=== PATIENT | male | born 1940 | race Caucasian/White ===

== ENCOUNTER → 2017-01-22 | Outpatient (CLI) | payer MEDICARE, OTHER ==
--- NOTE | 2017-01-22 09:46 | US ---
EXAMINATION TYPE: US prostate transrectal DATE OF EXAM: 01/22/2017 COMPARISON: NONE CLINICAL HISTORY: R97.20 elevated PSA. 76 year old with elevated PSA This examination was performed using the transrectal probe. EXAM MEASUREMENTS: Gland Size: 4.0 x 2.1 x 3.8cm Volume: 17.1ml Predicted PSA: 0.26 Actual PSA (if available):4.4 Heterogeneous gland, no evidence of a distinct nodule within peripheral zone at this time IMPRESSION: 1. No suspicious lesions identified however predicted PSA of actual PSA are discordant. Consider tiss ue diagnosis. Predicted PSA = volume x 0.12 ng/ml Calculated Volume = 0.5236 x L x W x H
== END | disposition home or self-care (01) ==
LOC: RADUSMAIN 08:51
PROVIDERS: ATTEND Family Medicine
DX: R97.20 Elevated prostate specific antigen [PSA] (principal)
CPT/HCPCS: 76872

== ENCOUNTER 2017-02-11 06:57 | Day surgery (SDC) | payer MEDICARE, OTHER ==
[2017-02-07 08:40] VITALS: BMI 22.4
[~2017-02-11 06:57] MED LIST: LACTATED RINGERS 1,000 ML IV SCH; LIDOCAINE 1% 20 ML VIAL (10MG/ML) FOR IV START INTRADERMA PRN
[2017-02-11] MEDS ORDERED: LACTATED RINGERS 1,000 ML IV ONE (07:06)
[2017-02-11 07:37] LABS: Glucose,Whole Blood 107 mg/dL (75-99)
[2017-02-11] MEDS ORDERED: LIDOCAINE 1% INJ 10MG/ML (20 ML MDV) ONE (08:21)
[2017-02-11] MEDS ORDERED: PROPOFOL 10 MG/ML 20 ML VIAL IV ONE (08:21)
--- NOTE | 2017-02-11 09:12 | P.PCN ---
Date of Procedure: 02/11/17 Preoperative Diagnosis: Postoperative Diagnosis: Procedure(s) Performed: Procedure: Total colonoscopy. Preoperative diagnosis: Screening for neoplasia, patient has history of polyps. Postoperative diagnosis: Diffuse diverticulosis with no evidence of acute diverticulitis, strictures, polyps or cancer. Preparation: HalfLytely prep. Sedation: Was provided by anesthesia. Brief clinical history: The patient is a 77-year-old male who is scheduled for this evaluation because of history of polyps. He had prior exam for screening and his preparation was less than ideal or poor on some of these exams. Procedure: With the patient on his left lateral decubitus position and after informed consent and adequate sedation, the perianal area was inspected and it did not show any fissures or fistulas. There were no masses felt on digital rectal examination. The Olympus CFQ 160L video colonoscope was then inserted in the rectum in the usual fashion and advanced to the cecum. The preparation was good. The mucosa appeared healthy. There were multiple diverticular orifices seen scattered along the length of the bowel, more so on the left side , with no evidence of acute diverticulitis or strictures. No polyps or tumors were seen. I retroflexed the endoscope in the rectum before the endoscope was withdrawn. The patient tolerated the procedure well. Plan: The patient was reassured. Discussed dietary measures. At his age, I did not schedule further screening or surveillance exams and that can be kept as a contingency based on his overall health in the future. He will follow up with you as planned. Implants: Indications for Procedure: Operative Findings: Description of Procedure:
[2017-02-11 09:15] VITALS: BP 95/59; PULSE 76; RESP 16
== END 2017-02-11 10:06 | disposition home or self-care (01) ==
LOC: ORWHC2ENDO 06:57
DX: Z12.11 Encounter for screening for malignant neoplasm of colon (principal); K21.9 Gastro-esophageal reflux disease without esophagitis; K57.30 Diverticulosis of large intestine without perforation or abscess without bleeding; Z86.010 Personal history of colon polyps; I10 Essential (primary) hypertension; E78.5 Hyperlipidemia, unspecified; E11.9 Type 2 diabetes mellitus without complications; Z79.84 Long term (current) use of oral hypoglycemic drugs; Z72.0 Tobacco use; Z79.82 Long term (current) use of aspirin; Z79.891 Long term (current) use of opiate analgesic; Z79.899 Other long term (current) drug therapy
CPT/HCPCS: J2001; J2704; G0105

== ENCOUNTER → 2017-04-15 | Outpatient (CLI) | payer MEDICARE, OTHER ==
--- NOTE | 2017-04-15 12:32 | XR ---
EXAMINATION TYPE: XR thoracic spine 4 views complete 5 views lumbar spine DATE OF EXAM: 04/15/2017 COMPARISON: Bone scan 04/04/2017 HISTORY: 77-year-old male prostate cancer and back pain FINDINGS: Thoracic spine: Moderate to severe disc/endplate degenerative change particularly in the mid to lower thoracic spine with loss of disc height, vacuum phenomenon, endplate sclerosis, and spondylosis. Some focal areas of sclerosis are present away from the endplates such as anteriorly in a mid thoraci c vertebral body as indicated by the arrow. Trace grade 1 anterolistheses at couple levels in the lower thoracic spine. Overall vertebral body he ights appear maintained. There is degenerated undulating curvature of the mid to lower thoracic spine . Lumbar spine: Advanced degenerative disc disease throughout with grade 1 retrolisthesis from L2 through L5 levels. Facet arthropathy is present. Extensive sclerotic changes some of which are centered along the endpla jerel but some of which are farther away from the endplates involving L2-L5 levels. Densely calcified a bdominal aorta which is ectatic measuring up to 2.7 cm. Left hemicolonic diverticulosis noted. IMPRESSION: 1. Moderate to advanced disc/endplate degenerative changes throughout the thoracolumbar spine. 2. While much of the sclerotic changes seems to relate to the degenerative endplate changes, some of the areas of sclerosis are located away from the endplate suggestive of osteoblastic metastases. Rolo elation with PSA values is recommended.
== END | disposition home or self-care (01) ==
LOC: RADXRMAIN 10:29
PROVIDERS: ATTEND Urology
DX: M47.815 Spondylosis without myelopathy or radiculopathy, thoracolumbar region (principal); D49.59 Neoplasm of unspecified behavior of other genitourinary organ
CPT/HCPCS: 72072; 72110

== ENCOUNTER → 2017-05-05 | Outpatient (CLI) | payer MEDICARE, OTHER ==
--- NOTE | 2017-05-06 16:27 | MR ---
EXAMINATION TYPE: MR cammieine/lspine wo con DATE OF EXAM: 05/05/2017 COMPARISON: Nuclear medicine bone scan April 04, 2017. Lumbar spine x-ray April 15, 2017. HISTORY: SECONDARY MALIGNANT NEOPLASM OF BONE per order. High risk prostate cancer with abnormal bone scan per order. Headaches with severe neck pain for years causing pain or weakness into right arm an d fingers per patient. Spine pain per patient. TECHNIQUE: Multiplanar, multisequence imaging of the cervical lumbar spine are performed without IV c ontrast. Patient refused IV contrast as requested by ordering physician due to pain and claustrophobi a. FINDINGS: C-SPINE: FINDINGS: Sagittal images of the cervical spine show the craniocervical junction to appear within nor mal limits. The cervical and upper thoracic spinal cord is normal in course, caliber, and signal. Th ere is slight grade 1 retrolisthesis of C3 on C4. The vertebral body heights are normal. There is mo derate disc space narrowing C5-C6 level with mild to moderate spurring. There is mild disc space narr owing and spurring C6-C7 level. There is disc space narrowing and spurring with heterogeneous diminis hed T1 and T2 signal felt to reflect Modic type III degenerative change C3-C4 level. Multilevel poste rior disc herniation/spur disc complexes are facing anterior thecal sac on sagittal images most promi nent at C3-C4 level. Axial images at C2-C3 level shows central disc bulge mildly effaces the anterior thecal sac, bilatera l neural foramina are patent. Axial images at C3-C4 level showed broad based posterior disc protrusion and spondylolisthesis effaci ng anterior thecal sac, there is asymmetric mild right-sided neural foraminal narrowing due to uncove rtebral facet arthropathy. Left-sided neural foramen is patent. Axial images at C4-C5 level showed broad based posterior disc protrusion effacing the anterior thecal sac and causing asymmetric [id number] right-sided neural foraminal narrowing due to foraminal disc protrusion component and axial image 32. Left-sided neural foramina is patent. Axial images at C5-C6 levels from broad-based posterior disc protrusion effacing anterior thecal sac and causing asymmetric moderate left-sided neural foraminal narrowing near axial image 24, right-side d neural foramen is patent. Axial images at C6-C7 level show right paracentral disc protrusion effacing anterolateral thecal sac and causing moderate to severe right-sided neural foraminal narrowing axial image 18, there is mild l eft-sided neural foraminal narrowing due to foraminal disc protrusion. Axial images at C7-T1 level are felt within normal limits. There is partial visualization of at least 1.6 cm left thyroid nodule on axial image 2 that warrants follow-up. IMPRESSION: Multilevel degenerative changes in the cervical spine most prominent at C3-C4 level as de tailed above. Follow-up thyroid ultrasound is advised for left-sided greater than 1.5 cm nodule. L-SPINE: There is mild height loss L3 level. Sagittal images of the lumbar spine show vertebral body heights t o otherwise appear satisfactory. There is multilevel disc desiccation with advanced disc space narrow ing L2-L3, L3-L4, and L5-S1 levels identified. Posterior disc herniations or facing anterior thecal s ac L2-L3 and L3-L4 levels. The conus medullaris is normal in position and signal ending at mid L1 lev el. There is heterogeneous diminished T1 and T2 signal involving anterior inferior L2 and diffusely t hroughout L3 vertebra with additional areas of involvement involving the left L4-L5 endplate. This co rresponds to sclerosis on radiographs and increased radiotracer uptake. While some of the findings ar e centered at endplates and felt to reflect product of degenerative change. There appear to be areas to diffusely sclerotic in on endplate based particularly involving L2 and L3 vertebra suspicious for sclerotic metastatic foci. Axial images at T12-L1 level shows broad disc bulge effacing the anterior thecal sac. Bilateral neura l foramina remain patent. Axial images at L1-L2 level shows broad disc bulge effacing the anterior thecal sac and mild facet ar thropathy mildly effacing posterior lateral thecal sac and image 31. Bilateral neural foramina remain patent. Axial images at L2-L3 level show more prominent moderate broad-based disc bulge effacing anterior the storm sac. There is mild bilateral anterior inferior neural foraminal narrowing at this level identifie d. Axial images at L3-L4 level show moderate to severe broad disc bulge and mild facet degenerative walden ges bilaterally. This effacement anterior thecal sac. There is moderate to severe right-sided neural foraminal narrowing with encroachment on the right L3 nerve fell present on sagittal image 13. There is more mild left-sided neural foraminal narrowing noted. Axial images L4-L5 level show moderate left greater than right facet degenerative changes. There is b road disc bulge with left lateral disc protrusion component. There is effacement of anterior thecal s ac. There is mild right-sided neural foraminal narrowing. There is advanced left-sided neural foramin al narrowing with encroachment left L4 nerve seen on sagittal image 5. Axial images at L5-S1 level mild/moderate facet degenerative changes bilaterally. Spinal canal is pre served. There is moderate to severe left-sided neural foraminal narrowing encroaching on left L5 nerv e seen best on sagittal images 4 and 5. There is mild right-sided neural foraminal narrowing noted. No suspicious retroperitoneal findings are seen. IMPRESSION: Suboptimal study as patient refused IV contrast. There are multilevel degenerative change s as detailed above. There is more prominent bone marrow signal changes than would be expected for de generative change particularly involving L2 and L3 vertebra worrisome but not definitive for metastat ic disease to the bone.
== END | disposition home or self-care (01) ==
LOC: RADMRIMAIN 17:29
PROVIDERS: ATTEND Radiology Radiation Oncology
DX: M47.816 Spondylosis without myelopathy or radiculopathy, lumbar region (principal); M47.812 Spondylosis without myelopathy or radiculopathy, cervical region; M89.8X8 Other specified disorders of bone, other site; C79.51 Secondary malignant neoplasm of bone
CPT/HCPCS: 72141; 72148

== ENCOUNTER → 2017-07-30 | Outpatient (CLI) | payer MEDICARE, OTHER ==
--- NOTE | 2017-07-30 21:59 | MR ---
EXAMINATION TYPE: MR lumbar spine wo/w con DATE OF EXAM: 07/30/2017 COMPARISON: 05/05/2017 HISTORY: 77-year-old male Secondary malignant neoplasm of bone Technique: Multiplanar, multisequence images of the lumbar spine were obtained before and after admin istration of 7.5 mL intravenous Gadavist gadolinium contrast. FINDINGS: Vertebral body heights are preserved. There is grade 1 retrolisthesis from L2 through L5 levels. Extensive bone marrow signal abnormality especially involving L2 and L3, right lateral aspect of L4, and left lateral aspect of L5-S1 seems to be centered more along the endplates suggesting advanced de generative disc disease. No convincing extraosseous soft tissue component is identified. Conus medullaris is normal. Diffusely ectatic abdominal aorta with upper abdominal aorta measuring up to 2.8 cm and lower abdomin al aorta measuring up to 2.6 cm. No prevertebral or paravertebral soft tissue abnormality seen. Otherwise, overall findings are stable with moderate to advanced multilevel degenerative disc disease , multilevel ligamentum flavum thickening, severe hypertrophic facet arthropathy specially mid to low er lumbar spine, and Baastrup's disease. At T12-L1, mild spinal canal stenosis without significant neural foraminal stenosis. At L1/L2, disc material indents the ventral thecal sac without significant spinal canal stenosis. No neural foraminal stenosis. At L2-L3, there is hypertrophic facet arthropathy with grade 1 retrolisthesis, diffuse disc bulge and facet degenerative change. 2. Difficult to mild spinal canal stenosis and mild right and minimal inferior left neural foraminal stenosis. At L3-L4, hypertrophic facet arthropathy with grade 1 retrolisthesis, ligamentum flavum thickening, a nd bulging disc. Changes are causing mild overall final canal stenosis with mild left and moderate to severe right neuroforaminal stenosis. At L4-L5, there is hypertrophic facet arthropathy with ligamentum flavum thickening and grade 1 retro listhesis. Changes result in mild spinal canal stenosis with mild right and moderate to severe left n euroforaminal stenosis. At L5-S1, facet arthropathy and bulging disc. Changes of both in moderate left and qreh-do-lfkhruhe r ight neuroforaminal stenosis without spinal canal stenosis. IMPRESSION: 1. Bone marrow changes particularly involving L2 and L3, right lateral aspect of L3 and L4, and left lateral aspect of L4 and L5. These changes appear centered along the endplates more suggestive of deg enerative signal changes rather than osseous metastases. There is no extraosseous soft tissue compone nt or extension of abnormal signal to the posterior elements. Clinical correlation recommended for an y known primary malignancy. 2. Advanced multilevel spondylotic changes with grade 1 retrolisthesis from L2 through L5 levels with multilevel mild spinal canal stenosis. 3. Moderate to severe neuroforaminal stenosis on the right at L3-L4 and on the left at L4-L5, moderat e on the left at L5-S1.
== END | disposition home or self-care (01) ==
LOC: RADMRIMAIN 13:36
PROVIDERS: ATTEND Radiology Radiation Oncology
DX: C79.51 Secondary malignant neoplasm of bone (principal); M99.73 Connective tissue and disc stenosis of intervertebral foramina of lumbar region; M99.74 Connective tissue and disc stenosis of intervertebral foramina of sacral region
CPT/HCPCS: 72158; A9581

== ENCOUNTER → 2018-04-01 | Outpatient (CLI) | payer MEDICARE, OTHER ==
--- NOTE | 2018-04-01 17:21 | CTL ---
EXAMINATION TYPE: CT Low Dose Lung DATE OF EXAM ORDERED: 04/01/2018 HISTORY: Tobacco abuse. Lung cancer screening CT DLP: 99.[address] CTDI: 3.30 mGy Automated exposure control for dose reduction was used. SCREENING VISIT: Initial COMPARISON: CT angiography of the chest dated 10/27/2015 TECHNIQUE: Low dose computed tomography scan was performed through the chest at 1 mm thick sections a nd reconstructed images in the coronal plane at [address] DIAGNOSTIC QUALITY: Satisfactory FINDINGS: LUNG NODULES: There is a 1.2 cm peripherally spiculated solid pulmonary nodule within the medial left lower lobe in the posterior basilar segment on series 4 image 188. This does not appear to have been present on th e prior exam of 2016 and if was present at all which have been obscured by left lower lobe opacity. LUNGS: COPD: Severity: Moderate Fibrosis: Severity: Mild with peripheral basilar predominant subpleural reticulation, interlobular se ptal thickening and fibrosis Lymph nodes: Right paratracheal lymph node measures 1.1 cm in short axis on image 91 and image 97. La ck of intravenous contrast limits evaluation of the mediastinum however no other enlarged mediastinal lymph nodes are grossly seen. No axillary adenopathy. Other findings: Cylindrical bronchiectasis predominates within the lower lobes. RIGHT PLEURAL SPACE: Effusion: None Calcification: None Thickening: None Pneumothorax: None LEFT PLEURAL SPACE: Effusion: None Calcification: None Thickening: Measuring up to 8 mm on image 178. Pneumothorax: None HEART: Heart Size: Upper limits of normal Coronary calcification: Severe Pericardial effusion: None OTHER FINDINGS: Upper abdomen: Unenhanced portions are grossly unremarkable. Bony thorax: Sclerotic focus is seen within the right clavicle on image 1. This is indeterminate. [place] or lateral healed rib fracture of rib 5 is seen on the left. There is osseous fusion of midthoracic v ertebrae and multilevel moderate degenerative changes as seen on the prior exam of 2016. Lower lucent lesion near a pedicle of approximately the T10 vertebral body is stable from 2016. Supraclavicular region: No gross evidence of adenopathy. Other: None IMPRESSION: Suspicious finding. Solid 1.2 cm spiculated left lower lobe pulmonary nodule superimposed upon moderate emphysema and peripheral basilar predominant fibrosis. Lung RADS 4A-findings for which additional diagnostic testing and/or tissue sampling is recommended. Initial workup with PET CT is r ecommended with subsequent consideration for percutaneous biopsy if avid. FOLLOW UP CT CHEST RECOMMENDATION: PET/CT CT LUNG RAD: Lung-Rad 4A Suspicious
== END ==
LOC: RADCTMAIN 13:35
PROVIDERS: ATTEND Radiology Radiation Oncology
DX: Z12.2 Encounter for screening for malignant neoplasm of respiratory organs (principal); R91.1 Solitary pulmonary nodule; J43.9 Emphysema, unspecified; J84.10 Pulmonary fibrosis, unspecified; Z87.891 Personal history of nicotine dependence

== ENCOUNTER → 2018-04-18 | Outpatient (CLI) | payer MEDICARE, OTHER ==
--- NOTE | 2018-04-22 09:45 | PE ---
EXAMINATION TYPE: PET CT fusion skull to thigh DATE OF EXAM: 04/18/2018 CLINICAL HISTORY: Prostate cancer initial staging study. Abnormal low dose lung screening CT. TECHNIQUE: Following the intravenous administration of 13.194 mCi of F-18 FDG, whole body images ar e performed from the skull base to the midthigh. Images are reviewed on the computer in the coronal, axial, and sagittal planes. Reconstructed rotating images are created on independent workstation an d reviewed on the computer. A non-contrast CT is performed in conjunction with the PET scan. COMPARISON: Low-dose lung screening CT April 01, 2018. CT pelvis April 04, 2017. Initial scan. FINDINGS: SKULL BASE AND NECK: No suspicious hypermetabolic uptake is present. CHEST, MEDIASTINUM, AND HILAR REGION: There is background mild underlying emphysematous change with m ore moderate peripheral reticulation and fibrosis most prominent in the mid to lower lungs where ther e is honeycombing in the bases. Correlating with recent CT there is 1.3 x 0.9 cm medial left lower lo be slightly hypermetabolic nodule axial image 104, max SUV is 2.69. There is enlarged lymph node just below left lung bronchus adjacent to esophagus measuring 1.7 x 1.2 cm axial image 90 with abnormal h ypermetabolic uptake, max SUV is 4.12. Slightly more medial in position than typical left hilar lymph node. No additional areas of suspicious hypermetabolic uptake are seen. ABDOMEN AND PELVIS: No adrenal masses are noted. There is irregular soft tissue nodule in the anterior left mid abdominal wall axial image 188 measuri ng 1.3 x 1.3 cm, max SUV is 4.68. Slightly more prominent bowel uptake than typical is seen in the sigmoid colon, correlate for colitis at this level. Prominent diverticula are noted. No additional areas of suspicious hypermetabolic uptake are noted. OSSEOUS STRUCTURES: No suspicious hypermetabolic uptake is seen. OTHER CT: There is moderate to severe calcification bilateral carotid bulbs. There is irregular sclerosis without hypermetabolic uptake left inferior C2 level axial image 24, fav or asymmetric increased degenerative change at this level possibly related to old trauma. Cardiomegaly is present. There is moderate to severe coronary artery calcium and/or stents noted. Bilateral right greater than left gynecomastia is appreciated. Prominent but subcentimeter prevascular lymph nodes are present. There is borderline enlarged right t racheobronchial lymph node without hypermetabolic uptake axial image 82. Cholecystectomy clips are present. There are diverticula throughout the colon most prominent in the sigmoid colon. There is moderate to severe calcified plaque of aorta extending into branch vessels. Some ectasia is present distally. Scattered pelvic phleboliths are seen. Small size prostate gland is redemonstrated. Osseous structures are demineralized. Multilevel spurring throughout the spine is present. Multilevel disc space narrowing with endplate sclerosis is noted throughout the spine. IMPRESSION: Suspicious left lower lung nodule and favored inferior left hilar lymph node over mediast inal lymph node worrisome for neoplasm. Unusual hypermetabolic irregular left anterior abdominal wall soft tissue lesion. Imaging guided biopsy of this lesion advised as this will most likely affect st aging.
== END ==
LOC: RADPETMAIN 12:04
PROVIDERS: ATTEND Radiology Radiation Oncology
DX: C61 Malignant neoplasm of prostate (principal); K31.9 Disease of stomach and duodenum, unspecified
CPT/HCPCS: 78815; A9552

== ENCOUNTER 2018-05-12 07:50 | Day surgery (SDC) | payer MEDICARE, OTHER ==
[2018-05-12 08:16] VITALS: RESP 16; TEMP 98
[2018-05-12] MEDS ORDERED: ALPRAZolam 0.25 MG TAB PO STA (08:29)
--- NOTE | 2018-05-12 09:45 | US ---
ULTRASOUND GUIDED CORE BIOPSY OF THE ANTERIOR ABDOMINAL SUBCUTANEOUS MASS: CLINICAL HISTORY: Subcutaneous mass anterior abdomen requested for biopsy FINDINGS: The procedure was explained to the patient. The risks, complications, benefits and alternatives were discussed and any questions were answered. Informed consent was obtained. Patient was placed supin e on the ultrasound table and prepped and draped in the usual sterile fashion. Utilizing a 18 gauge core biopsy needle, five passes were made into the questioned subcutaneous lesion. Patient was stable throughout the procedure. Pathology is pending. All elements of maximal barrier technique were utilized. IMPRESSION: 1. Successful ultrasound guided core biopsy subcutaneous soft tissue mass anterior abdominal wall..
[2018-05-12 10:53] VITALS: BP 119/60; PULSE 75
== END 2018-05-12 09:40 | disposition home or self-care (01) ==
LOC: RADPROMAIN 07:50
PROVIDERS: ATTEND Radiology Radiation Oncology
DX: R19.04 Left lower quadrant abdominal swelling, mass and lump (principal); C61 Malignant neoplasm of prostate; Z92.3 Personal history of irradiation; F17.210 Nicotine dependence, cigarettes, uncomplicated; Z88.8 Allergy status to other drugs, medicaments and biological substances
CPT/HCPCS: 49180; 76942; 88305; 88341; 88342

== ENCOUNTER → 2018-09-23 | Outpatient (CLI) | payer MEDICARE, OTHER ==
--- NOTE | 2018-09-23 15:17 | CT ---
EXAMINATION TYPE: CT ChestAbdPelvis wo/w con DATE OF EXAM: 09/23/2018 COMPARISON: PET/CT April 18, 2018 HISTORY: Follow up of prostate cancer CT DLP: 958.9 mGycm. Automated Exposure Control for Dose Reduction was Utilized. CONTRAST: CT scan of the thorax, abdomen and pelvis is performed without oral and without and with IV Contrast, patient injected with 100 mL of Isovue 300. FINDINGS: LUNGS: There is background mild emphysematous change with peripheral reticulation and fibrosis seen b ilaterally most prominent in the lower lungs as there is some honeycombing also identified towards th e bases. There is persistent 1.3 x 0.9 cm posterior left basilar nodule or nodular consolidation axia l image 41 unchanged from PET/CT. No pleural effusion or pneumothorax. MEDIASTINUM: There are no new greater than 1 cm hilar or mediastinal lymph nodes. There is stable cassandra picious 1.2 x 1.1 cm left paraesophageal lymph node or mass axial image 30. Prominent but subcentimet er prevascular lymph nodes are stable. No cardiomegaly or pericardial effusion is seen. There is mo derate to severe three-vessel coronary artery calcification redemonstrated. There is air filled promi nent proximal to mid esophagus redemonstrated. OTHER: Right greater than left bilateral gynecomastia is redemonstrated. LIVER/GB: Cholecystectomy clips are redemonstrated. PANCREAS: No significant abnormality is seen. SPLEEN: No significant abnormality is seen. ADRENALS: There is some low dense thickening to both adrenal glands redemonstrated felt to reflect be nign hyperplasia. KIDNEYS: Subcentimeter low dense lesion left kidney series 9 image 24 mid pole level is too small to further characterize but presumed benign. BOWEL: There is some prominence of fecal material throughout the colon. Stomach is poorly distended a nd thus suboptimally evaluated. There is no suspicious small or large bowel dilatation. Sigmoid colon ic diverticulosis is redemonstrated.. GENITAL ORGANS: Prostate gland is not enlarged in size. Scattered pelvic phleboliths are redemonstrat ed. LYMPH NODES: No greater than 1cm abdominal or pelvic lymph nodes are appreciated. OSSEOUS STRUCTURES: Osseous structures are demineralized. There is scoliotic curvature. There is endp late sclerosis and disc space narrowing most prominent in the lumbar spine but also seen in the thora cic spine at T7-T8 and T5-T6 levels. There is some ossific fusion at C6-C7 level noted OTHER: There is persistent vague soft tissue nodule anterior left mid abdominal wall axial image 89 u nchanged from PET/CT measuring approximately 1.4 x 0.7 cm. There is tortuous descending aorta with mo derate to severe calcified plaque infrarenal abdominal aorta extending into iliac branch vessels rede monstrated. IMPRESSION: Stable nonspecific medial left basilar nodule. Stable left paraesophageal possible infra hilar mass or lymph node which had abnormal hypermetabolic uptake on PET CT. Stable anterior left mid abdominal subcutaneous nodule which at abnormal hypermetabolic uptake on PET CT. No new suspicious m asses or adenopathy.
== END | disposition home or self-care (01) ==
LOC: RADCTMAIN 13:03
PROVIDERS: ATTEND Radiology Radiation Oncology
DX: C61 Malignant neoplasm of prostate (principal); F17.210 Nicotine dependence, cigarettes, uncomplicated; R91.1 Solitary pulmonary nodule; Z92.3 Personal history of irradiation
CPT/HCPCS: 82565; 84520; 71270; 74178; 36415; Q9967

== ENCOUNTER → 2019-01-12 | Outpatient (CLI) | payer MEDICARE, OTHER ==
--- NOTE | 2019-01-13 13:05 | CT ---
EXAMINATION TYPE: CT ChestAbdPelvis wo/w con DATE OF EXAM: 01/12/2019 INDICATION: f/u prostate ca COMPARISON: 09/23/2018 CT DLP: 1849.8 mGycm CONTRAST: Performed with Oral Contrast and with IV Contrast, patient injected with 100 mL of Isovue 300. TECHNIQUE: Axial images at 5 mm thick sections. Reconstructed images in the coronal plane. Delayed images through the kidneys. FINDINGS: CT CHEST: Portion of the thyroid visualized is normal. Emphysematous changes are present. There is a 1.0 cm nodule within the posterior lateral right left midlung. Borders appear somewhat mor e Regular than the comparison. No enlargement is evident. Series 4 image 34. There is a 1.4 cm lymph node in the pretracheal space, this was present previously and is stable. A f ew shoddy lymph nodes are present. The ascending aorta diameter at the level of the main pulmonary artery is 3.7 cm. The main pulmonary artery diameter at the bifurcation is 2.8 cm. Moderate to severe coronary artery calcification is no gian. CT ABDOMEN: Liver: Normal Spleen: Normal Pancreas: Normal Adrenal glands: The adrenal glands are normal. Gallbladder: Normal Kidneys: No masses are evident. No hydronephrosis is present. No cysts are present. Delayed images were obtained through the kidneys, which remain unremarkable. Aorta: Vascular calcification is within the aorta. Inferior vena cava: Normal. CT PELVIS: Loops of bowel within the abdomen and pelvis are normal. Diverticular changes are within the sigmoid colon. No acute diverticulitis is evident. There are loops of bowel which are incompletely distend ed or lack oral contrast limiting their evaluation. Appendix: Normal as visualized. Urinary bladder: Normal. Genitourinary structures: Prostate is not clearly evident. No enlarged prostate is evident. Osseous structures: No suspicious lytic or sclerotic lesions. Some degenerative type sclerotic change s appear to be within the lumbar spine endplates. The soft tissue density within the anterior left abdominal wall within the left hemipelvis region, im age 89, stable from comparison. IMPRESSIONS: 1. Examination appears stable from September 2018. 2. Stable 1 cm nodule posterior medial left lung base. 3. Stable mediastinal lymph node. 4. Stable soft tissue nodule anterior left hemipelvis subcutaneous tissue.
== END | disposition home or self-care (01) ==
LOC: RADCTMAIN 15:45
PROVIDERS: ATTEND Radiology Radiation Oncology
DX: R91.1 Solitary pulmonary nodule (principal); C61 Malignant neoplasm of prostate; Z92.3 Personal history of irradiation; F17.210 Nicotine dependence, cigarettes, uncomplicated
CPT/HCPCS: 82565; 84520; 71270; 74178; 36415; Q9967

== ENCOUNTER 2019-03-24 14:53 | Emergency (ER) | payer MEDICARE, OTHER ==
[2019-03-24 15:04] VITALS: RESP 16
--- NOTE | 2019-03-24 15:43 | ED ---
Altered Mental Status HPI - General Chief Complaint: Altered Mental Status Stated Complaint: WEAKNESS Time Seen by Provider: 03/24/19 15:16 Source: EMS Mode of arrival: EMS - History of Present Illness Initial Comments: 79-year-old male history of diabetes and COPD presents immersed her arm for evaluation of generalized weakness fatigue x 6hours. Family states patient appeared more tired than usual. They state that he did stay up late last night and they stated that he was up early today stating he usually sleeps until around 2 PM. They state patient does not appear to have strokelike symptoms tonight focalized weakness speech changes, or difficulty articulating speech. They state patient just appears more fatigued and weaker than usual. Patient states he is tired. Patient has no other complaints. Family wanted to bring patient in for evaluation in case the fatigue was not just due to lack of sleep. They deny any concerns or other complaints noted. Denies any falls. Upon arrival patient is alert and oriented 3. He is easily aroused. Answering questions appropriately. Vital signs within acceptable limits. - Related Data Home Medications Medication Instructions Recorded Confirmed Aspirin 81 mg PO DAILY 08/24/15 05/05/18 Gabapentin [Neurontin] 300 mg PO TID 08/24/15 05/12/18 HYDROcodone/APAP 10-325MG [[place] 1 tab PO Q6H PRN 08/24/15 05/12/18 10-325] Montelukast [Singulair] 10 mg PO DAILY 08/24/15 05/12/18 Omeprazole 40 mg PO DAILY 08/24/15 05/12/18 Pravastatin Sodium [Pravachol] 40 mg PO HS 08/24/15 05/12/18 metFORMIN HCL 1,000 mg PO BID 08/24/15 05/12/18 Calcium Carbonate/Vitamin D3 1 tab PO DAILY 02/07/17 05/12/18 [Calcium 600-Vit D3 400 [place]] Ferrous Sulfate [Iron (65 MG 325 mg PO DAILY 02/07/17 05/12/18 Elemental)] Tamsulosin [Flomax] 0.4 mg PO DAILY 05/05/18 05/12/18 Allergies Allergy/AdvReac Type Severity Reaction Status Date / Time No Known Allergies Allergy Verified 03/24/19 17:34 Review of Systems ROS Statement: Those systems with pertinent positive or pertinent negative responses have been documented in the HPI. ROS Other: All systems not noted in ROS Statement are negative. Past Medical History Past Medical History: Cancer, COPD, Diabetes Mellitus, GERD/Reflux, Hyperlipidemia, Osteoarthritis (OA), Prostate Disorder Additional Past Medical History / Comment(s): Degenerative arthritis affecting neck, back, legs and arms, NIDDM type II, 1989 stomach ulcer with upper GI bleed and transfusions, prostate cancer History of Any Multi-Drug Resistant Organisms: None Reported Past Surgical History: Cholecystectomy Additional Past Surgical History / Comment(s): salivary gland removed, colonoscopies with benign polyps, EGD with ulcer repair, bilateral CATARACTS w/ removal and lens implants. Past Anesthesia/Blood Transfusion Reactions: No Reported Reaction Additional Past Anesthesia/Blood Transfusion Reaction / Comment(s): HX OF BLOOD TRANSFUSION (1989)- NO PROBLEM. Past Psychological History: Depression Smoking Status: Current every day smoker Past Alcohol Use History: None Reported Past Drug Use History: None Reported - Past Family History Sister(s) Family Medical History: Cancer Additional Family Medical History / Comment(s): BREAST & BONE CA Mother Family Medical History: No Reported History Additional Family Medical History / Comment(s): Mother was pretty healthy-she at age 94 yrs. General Exam - General Exam Comments Initial Comments: General: The patient is awake and alert, in no distress, and does not appear acutely ill. Eye: +2 mm pupils are equal, round and reactive to light, extra-ocular moveme nts are intact. No nystagmus. There is normal conjunctiva bilaterally. No signs of icterus. Ears, nose, mouth and throat: There are moist mucous membranes and no oral le sions. Neck: The neck is supple, there is no tenderness or JVD. Cardiovascular: There is a regular rate and rhythm. No murmur, rub or gallop is appreciated. Respiratory: Lungs are clear to auscultation, respirations are non-labored, breath sounds are equal. No wheezes, stridor, rales, or rhonchi. Gastrointestinal: Soft, non-distended, non-tender abdomen without masses or organomegaly noted. There is no rebound or guarding present. Musculoskeletal: Normal ROM, no tenderness. Strength 5/5 of the upper or lower extremities equal and comparison bilaterally. Sensation intact of the upper and lower extremities equal and comparison bilaterally. Pulses equal bilaterally 2+. Finger-nose within cornea. Lkgy-yp-guin smooth and coordinated. Neurological: A&O x 3. CN II-XII intact, There are no obvious motor or sensory deficits. Coordination appears grossly intact. Speech is normal. No drift of the upper or lower extremities. Skin: Skin is warm and dry and no rashes or lesions are noted. Psychiatric: Cooperative, appropriate mood & affect, normal judgment. Course Vital Signs 03/24/19 03/24/19 03/24/19 14:57 15:56 17:29 Temperature 97.9 F 98.4 F Pulse Rate 93 82 84 Respiratory 16 16 16 Rate Blood Pressure 126/68 103/53 131/68 O2 Sat by Pulse 97 98 97 Oximetry Medical Decision Making - Medical Decision Making 79-year-old male presented for fatigue, evaluation of generalized weakness/fatigue. Patient is no focalized weakness or focal deficits on p hysical examination. CT of the brain negative for acute process. Laboratory studies are unremarkable. No acute findings. EKG stable. Patient states he has no other complaints he states he did stay up late. We discussed laboratory studies EKG chest x-ray as well as CT findings with patient's daughter who is bedside. She states she truly believes that this is due to lack of sleep. Family was offered admission for further observation. Patient refused a state that they will attempt to take patient home and if he has not appeared better they will return to ER. I discussed the case with my attending provider Dr Chang, who evaluated the patient personally he is agreeable to discharge patient discharged appearing well aware return parameters. - Lab Data Result diagrams: 03/24/19 15:20 03/24/19 15:20 Lab Results 03/24/19 03/24/19 03/24/19 Range/Units 15:20 15:20 15:20 WBC 9.3 (3.8-10.6) k/uL RBC 3.96 L (4.30-5.90) m/uL Hgb 12.7 L (13.0-17.5) gm/dL Hct 38.7 L (39.0-53.0) % MCV 97.8 (80.0-100.0) fL MCH 32.0 (25.0-35.0) pg MCHC 32.7 (31.0-37.0) g/dL RDW 13.6 (11.5-15.5) % Plt Count 163 (150-450) k/uL Neutrophils % 74 % Lymphocytes % 15 % Monocytes % 4 % Eosinophils % 6 % Basophils % 0 % Neutrophils # 6.9 (1.3-7.7) k/uL Lymphocytes # 1.4 (1.0-4.8) k/uL Monocytes # 0.4 (0-1.0) k/uL Eosinophils # 0.5 (0-0.7) k/uL Basophils # 0.0 (0-0.2) k/uL PT (9.0-12.0) sec INR (<1.2) APTT (22.0-30.0) sec Sodium 139 (137-145) mmol/L Potassium 4.8 (3.5-5.1) mmol/L Chloride 105 (98-107) mmol/L Carbon Dioxide 25 (22-30) mmol/L Anion Gap 9 mmol/L BUN 26 H (9-20) mg/dL Creatinine 1.14 (0.66-1.25) mg/dL Est GFR (CKD-EPI)AfAm 72 (>60 ml/min/1.73 sqM) Est GFR (CKD-EPI)NonAf 62 (>60 ml/min/1.73 sqM) Glucose 109 H (74-99) mg/dL POC Glucose (mg/dL) (75-99) mg/dL POC Glu Bar Captain ID Calcium 9.3 (8.4-10.2) mg/dL Total Bilirubin 0.2 (0.2-1.3) mg/dL AST 21 (17-59) U/L ALT 6 L (21-72) U/L Alkaline Phosphatase 95 (38-126) U/L Ammonia <9 (<30) umol/L Troponin I (0.000-0.034) ng/mL Total Protein 6.3 (6.3-8.2) g/dL Albumin 3.7 (3.5-5.0) g/dL Urine Color Urine Appearance (Clear) Urine pH (5.0-8.0) Ur Specific [place] (1.001-1.035) Urine Protein (Negative) Urine Glucose (UA) (Negative) Urine Ketones (Negative) Urine Blood (Negative) Urine Nitrite (Negative) Urine Bilirubin (Negative) Urine Urobilinogen (<2.0) mg/dL Ur Leukocyte Esterase (Negative) Urine Opiates Screen (NotDetected) Ur Oxycodone Screen (NotDetected) Urine Methadone Screen (NotDetected) Ur Propoxyphene Screen (NotDetected) Ur Barbiturates Screen (NotDetected) U Tricyclic Antidepress (NotDetected) Ur Phencyclidine Scrn (NotDetected) Ur Amphetamines Screen (NotDetected) U Methamphetamines Scrn (NotDetected) U Benzodiazepines Scrn (NotDetected) Urine Cocaine Screen (NotDetected) U Marijuana (THC) Screen (NotDetected) 03/24/19 03/24/19 03/24/19 Range/Units 15:20 15:20 16:07 WBC (3.8-10.6) k/uL RBC (4.30-5.90) m/uL Hgb (13.0-17.5) gm/dL Hct (39.0-53.0) % MCV (80.0-100.0) fL MCH (25.0-35.0) pg MCHC (31.0-37.0) g/dL RDW (11.5-15.5) % Plt Count (150-450) k/uL Neutrophils % % Lymphocytes % % Monocytes % % Eosinophils % % Basophils % % Neutrophils # (1.3-7.7) k/uL Lymphocytes # (1.0-4.8) k/uL Monocytes # (0-1.0) k/uL Eosinophils # (0-0.7) k/uL Basophils # (0-0.2) k/uL PT 9.5 (9.0-12.0) sec INR 0.9 (<1.2) APTT 23.9 (22.0-30.0) sec Sodium (137-145) mmol/L Potassium (3.5-5.1) mmol/L Chloride (98-107) mmol/L Carbon Dioxide (22-30) mmol/L Anion Gap mmol/L BUN (9-20) mg/dL Creatinine (0.66-1.25) mg/dL Est GFR (CKD-EPI)AfAm (>60 ml/min/1.73 sqM) Est GFR (CKD-EPI)NonAf (>60 ml/min/1.73 sqM) Glucose (74-99) mg/dL POC Glucose (mg/dL) (75-99) mg/dL POC Glu Bar Captain ID Calcium (8.4-10.2) mg/dL Total Bilirubin (0.2-1.3) mg/dL AST (17-59) U/L ALT (21-72) U/L Alkaline Phosphatase (38-126) U/L Ammonia (<30) umol/L Troponin I <0.012 (0.000-0.034) ng/mL Total Protein (6.3-8.2) g/dL Albumin (3.5-5.0) g/dL Urine Color Yellow Urine Appearance Clear (Clear) Urine pH 7.0 (5.0-8.0) Ur Specific [place] 1.019 (1.001-1.035) Urine Protein Negative (Negative) Urine Glucose (UA) Negative (Negative) Urine Ketones Negative (Negative) Urine Blood Negative (Negative) Urine Nitrite Negative (Negative) Urine Bilirubin Negative (Negative) Urine Urobilinogen <2.0 (<2.0) mg/dL Ur Leukocyte Esterase Negative (Negative) Urine Opiates Screen Detected H (NotDetected) Ur Oxycodone Screen Not Detected (NotDetected) Urine Methadone Screen Not Detected (NotDetected) Ur Propoxyphene Screen Not Detected (NotDetected) Ur Barbiturates Screen Not Detected (NotDetected) U Tricyclic Antidepress Detected H (NotDetected) Ur Phencyclidine Scrn Not Detected (NotDetected) Ur Amphetamines Screen Not Detected (NotDetected) U Methamphetamines Scrn Not Detected (NotDetected) U Benzodiazepines Scrn Detected H (NotDetected) Urine Cocaine Screen Not Detected (NotDetected) U Marijuana (THC) Screen Not Detected (NotDetected) 03/24/19 Range/Units 16:23 WBC (3.8-10.6) k/uL RBC (4.30-5.90) m/uL Hgb (13.0-17.5) gm/dL Hct (39.0-53.0) % MCV (80.0-100.0) fL MCH (25.0-35.0) pg MCHC (31.0-37.0) g/dL RDW (11.5-15.5) % Plt Count (150-450) k/uL Neutrophils % % Lymphocytes % % Monocytes % % Eosinophils % % Basophils % % Neutrophils # (1.3-7.7) k/uL Lymphocytes # (1.0-4.8) k/uL Monocytes # (0-1.0) k/uL Eosinophils # (0-0.7) k/uL Basophils # (0-0.2) k/uL PT (9.0-12.0) sec INR (<1.2) APTT (22.0-30.0) sec Sodium (137-145) mmol/L Potassium (3.5-5.1) mmol/L Chloride (98-107) mmol/L Carbon Dioxide (22-30) mmol/L Anion Gap mmol/L BUN (9-20) mg/dL Creatinine (0.66-1.25) mg/dL Est GFR (CKD-EPI)AfAm (>60 ml/min/1.73 sqM) Est GFR (CKD-EPI)NonAf (>60 ml/min/1.73 sqM) Glucose (74-99) mg/dL POC Glucose (mg/dL) 138 H (75-99) mg/dL POC Glu Bar Captain ID Prey, [place]inn Calcium (8.4-10.2) mg/dL Total Bilirubin (0.2-1.3) mg/dL AST (17-59) U/L ALT (21-72) U/L Alkaline Phosphatase (38-126) U/L Ammonia (<30) umol/L Troponin I (0.000-0.034) ng/mL Total Protein (6.3-8.2) g/dL Albumin (3.5-5.0) g/dL Urine Color Urine Appearance (Clear) Urine pH (5.0-8.0) Ur Specific [place] (1.001-1.035) Urine Protein (Negative) Urine Glucose (UA) (Negative) Urine Ketones (Negative) Urine Blood (Negative) Urine Nitrite (Negative) Urine Bilirubin (Negative) Urine Urobilinogen (<2.0) mg/dL Ur Leukocyte Esterase (Negative) Urine Opiates Screen (NotDetected) Ur Oxycodone Screen (NotDetected) Urine Methadone Screen (NotDetected) Ur Propoxyphene Screen (NotDetected) Ur Barbiturates Screen (NotDetected) U Tricyclic Antidepress (NotDetected) Ur Phencyclidine Scrn (NotDetected) Ur Amphetamines Screen (NotDetected) U Methamphetamines Scrn (NotDetected) U Benzodiazepines Scrn (NotDetected) Urine Cocaine Screen (NotDetected) U Marijuana (THC) Screen (NotDetected) - EKG Data EKG Comments: Ventricular rate 90 bpm, AL interval 136 ms correct pentecostal 84 ms, QT/QTC 368/[address] elevation or depression. Normal sinus rhythm. EKG was person interpreted and reviewed by my attending provider. Disposition Clinical Impression: Fatigue, Generalized weakness Disposition: HOME SELF-CARE Condition: Good Instructions (If sedation given, give patient instructions): Weakness (ED), Fatigue (ED) Additional Instructions: Please use medication as discussed. Please follow-up with family doctor in the next 2 days. Please return to emergency room if the symptoms increase or worsen or for any other concerns. Is patient prescribed a controlled substance at d/c from ED?: No Referrals: Abelardo Pastrana MD [Primary Care Provider] - 1-2 days Time of Disposition: 17:17
--- NOTE | 2019-03-24 15:44 | XR ---
EXAMINATION TYPE: XR chest 2V DATE OF EXAM: 03/24/2019 COMPARISON: 07/10/2017 INDICATION: Altered mental status TECHNIQUE: Frontal and lateral views of the chest are obtained. FINDINGS: The heart size is normal. The pulmonary vasculature is normal. The lungs are clear. IMPRESSION: 1. No acute pulmonary process.
[2019-03-24 15:45] LABS: Basophils % (A) 0 %; Eosinophils # (A) 0.5 k/uL (0-0.7); Eosinophils % (A) 6 %; HCT 38.7 % (39.0-53.0); HGB 12.7 gm/dL (13.0-17.5); Lymphocytes # (A) 1.4 k/uL (1.0-4.8); Lymphocytes % (A) 15 %; MCHC 32.7 g/dL (31.0-37.0); MCV 97.8 fL (80.0-100.0); Mean Platelet Volume 6.3; Monocytes # (A) 0.4 k/uL (0-1.0); Monocytes % (A) 4 %; Neutrophils # (A) 6.9 k/uL (1.3-7.7); Neutrophils % (A) 74 %; Platelet Count 163 k/uL (150-450); RBC 3.96 m/uL (4.30-5.90); RDW 13.6 % (11.5-15.5); WBC 9.3 k/uL (3.8-10.6)
--- NOTE | 2019-03-24 15:52 | CT ---
EXAMINATION TYPE: CT brain wo con DATE OF EXAM: 03/24/2019 HISTORY: AMS. CT DLP: 1055.4 mGycm. Automated Exposure Control for Dose Reduction was Utilized. TECHNIQUE: CT scan of the head is performed without contrast. COMPARISON: CT brain August 18, 2010. FINDINGS: There is no acute intracranial hemorrhage or midline shift identified. There is diffuse v entricular and sulcal prominence consistent with diffuse age-related cerebral atrophy. Atrophy is mos t prominent over the bilateral frontal lobes similar to prior. Cordero-white matter differentiation is f airly well-maintained. The globes are intact and the visualized sinuses are clear. IMPRESSION: No acute intracranial hemorrhage or midline shift. There is mild to moderate diffuse ag e-related cerebral atrophy most prominent over bilateral frontal lobes redemonstrated. No significant change from 2011 CT.
[2019-03-24 16:03] LABS: INR 0.9 (<1.2); Partial Thromboplastin Time 23.9 sec (22.0-30.0); Prothrombin Time 9.5 sec (9.0-12.0)
[2019-03-24 16:04] LABS: Albumin 3.7 g/dL (3.5-5.0); Calcium 9.3 mg/dL (8.4-10.2); Potassium 4.8 mmol/L (3.5-5.1); Total Bilirubin 0.2 mg/dL (0.2-1.3); Total Protein 6.3 g/dL (6.3-8.2)
[2019-03-24 16:25] LABS: Glucose,Whole Blood 138 mg/dL (75-99)
[2019-03-24 16:32] LABS: Appearance,Urine Clear (Clear); Bilirubin,Urine Negative (Negative); Blood,Urine Negative (Negative); Color,Urine Yellow; Glucose,Urine (UA) Negative (Negative); Ketones,Urine Negative (Negative); Leukocyte Esterase,Urine Negative (Negative); Nitrite,Urine Negative (Negative); Protein,Urine Negative (Negative); Specific Gravity,Urine 1.019 (1.001-1.035); Urobilinogen,Urine <2.0 mg/dL (<2.0)
[2019-03-24 16:43] LABS: Amphetamine Screen,Urine Not Detected (NotDetected); Barbiturate Screen,Urine Not Detected (NotDetected); Benzodiazepines Screen,Urine Detected (NotDetected); Cocaine Screen,Urine Not Detected (NotDetected); Methadone Screen, Urine Not Detected (NotDetected); Opiate Screen,Urine Detected (NotDetected); Oxycodone Screen, Urine Not Detected (NotDetected); Phencyclidine Screen,Urine Not Detected (NotDetected); Tricyclic Antidepressant,Urine Detected (NotDetected); Urn Cannabinoid Scrn Not Detected (NotDetected)
[2019-03-24] MEDS ORDERED: SODIUM CHLORIDE 0.9% 500 ML 500 ML IV ONE (17:07)
[2019-03-24 17:30] VITALS: BP 131/68; PULSE 84; TEMP 98.4
== END 2019-03-24 17:36 | disposition home or self-care (01) ==
LOC: EC 14:53
DX: R53.1 Weakness (principal); R53.83 Other fatigue; J44.9 Chronic obstructive pulmonary disease, unspecified; E11.9 Type 2 diabetes mellitus without complications; K21.9 Gastro-esophageal reflux disease without esophagitis; E78.5 Hyperlipidemia, unspecified; M47.812 Spondylosis without myelopathy or radiculopathy, cervical region; M47.819 Spondylosis without myelopathy or radiculopathy, site unspecified; M19.90 Unspecified osteoarthritis, unspecified site; F17.200 Nicotine dependence, unspecified, uncomplicated; Z79.82 Long term (current) use of aspirin; Z79.84 Long term (current) use of oral hypoglycemic drugs; Z79.899 Other long term (current) drug therapy; Z85.46 Personal history of malignant neoplasm of prostate; Z87.19 Personal history of other diseases of the digestive system; Z86.2 Personal history of diseases of the blood and blood-forming organs and certain disorders involving the immune mechanism; Z53.8 Procedure and treatment not carried out for other reasons; Z53.20 Procedure and treatment not carried out because of patient's decision for unspecified reasons
CPT/HCPCS: 36415; 70450; 71046; 80053; 80306; 81003; 82140; 84484; 85025; 85610; 85730; 93005; 99285

== ENCOUNTER → 2019-04-05 | Outpatient (CLI) | payer MEDICARE, OTHER ==
--- NOTE | 2019-04-06 04:55 | CT ---
EXAMINATION TYPE: CT chest w con DATE OF EXAM: 04/05/2019 COMPARISON: 01/12/2019 and 09/23/2018 HISTORY: 79-year-old male Abnormal chest xray. Patient with history of prostate cancer. TECHNIQUE: Contiguous axial scanning of the chest after the administration of 80ml mL of Isovue 300. Coronal/sagittal reconstructions performed. CT DLP: 346.2mGycm. Automatic exposure control utilized for a dose reduction. FINDINGS: Heart normal size without pericardial effusion. Extensive three-vessel coronary calcifications are pr esent. Borderline ectatic ascending aorta at 3.5 cm. Mild to moderate atherosclerotic arch calcifications wi th conventional arch vessel branching anatomy. Enlarged caliber to the main right and left pulmonary arteries and 3.0 and 2.6 cm, respectively, sugg esting underlying pulmonary arterial hypertension. 1.2 cm right tracheobronchial angle lymph node is unchanged. A 1.6 cm left paraesophageal/left infrahilar soft tissue nodule or lymph node is unchanged. No new or increasing thoracic lymphadenopathy seen. Redemonstrated are interstitial changes throughout with reticular opacities in the subpleural regions , greatest at the lung bases with subpleural microcystic change and suspected early honeycombing. Ret icular changes show very subtle progression from 09/23/2018. Stable 1.1 cm posterior left lower lobe pulmonary nodule. No new consolidation or pleural effusion. Visualized upper abdomen shows cholecystectomy clips. Bones: Advanced degenerative disc disease especially mid thoracic spine and also upper lumbar spine. End-stage degenerative change right shoulder. Severe degenerative changes left shoulder. IMPRESSION: 1. Subpleural reticular changes throughout, greatest at the lung bases with microcystic change and cuellar spected early honeycombing. Changes are subtly progressed from 09/23/2018. Fibrotic NSIP and UIP are i n the differential. 2. Pulmonary arterial hypertension and extensive three-vessel coronary artery disease. 3. Additional findings stable from 09/23/2018 include: 1.2 cm right tracheobronchial angle lymph node, 1.6 cm left infrahilar/paraesophageal soft tissue nodule or lymph node, and a 1.1 cm posterior left lower lobe pulmonary nodule.
== END ==
LOC: RADCTMAIN 16:15
PROVIDERS: ATTEND Internal Medicine
DX: I27.21 Secondary pulmonary arterial hypertension (principal); I25.10 Atherosclerotic heart disease of native coronary artery without angina pectoris; R91.8 Other nonspecific abnormal finding of lung field
CPT/HCPCS: 82565; 84520; 71260; 36415; Q9967

== ENCOUNTER 2020-04-12 18:13 | Inpatient (IN) | payer MEDICARE, OTHER ==
[2020-04-12] MEDS ORDERED: SODIUM CHLORIDE 0.9% 1,000 ML IV STA (18:31)
--- NOTE | 2020-04-12 18:33 | ED ---
General Adult HPI - General Chief complaint: Fall Stated complaint: Fall Time Seen by Provider: 04/12/20 18:18 Source: patient, EMS, RN notes reviewed Mode of arrival: EMS Limitations: no limitations - History of Present Illness Initial comments: Patient is a pleasant 80-year-old male presenting to the emergency Department with general weakness. Onset of symptoms was a few weeks ago. Patient has had several falls. No injury. Patient states he just feels weak and falls. No isolated area of weakness. No confusion. No headache. No speech problems. Patient denies any dizziness. - Related Data Home Medications Medication Instructions Recorded Confirmed Aspirin 81 mg PO DAILY 08/24/15 04/12/20 HYDROcodone/APAP 10-325MG [[place] 2 tab PO Q12H 08/24/15 04/12/20 10-325] Montelukast [Singulair] 10 mg PO DAILY 08/24/15 04/12/20 Omeprazole 40 mg PO DAILY 08/24/15 04/12/20 Pravastatin Sodium [Pravachol] 40 mg PO HS 08/24/15 04/12/20 metFORMIN HCL 1,000 mg PO DAILY 08/24/15 04/12/20 Tamsulosin [Flomax] 0.4 mg PO BID 05/05/18 04/12/20 Ipratropium-Albuterol Nebulize 3 ml INHALATION RT-QID PRN 04/12/20 04/12/20 [Duoneb 0.5 mg-3 mg/3 ml Soln] Allergies Allergy/AdvReac Type Severity Reaction Status Date / Time No Known Allergies Allergy Verified 04/12/20 20:32 Review of Systems ROS Statement: Those systems with pertinent positive or pertinent negative responses have been documented in the HPI. ROS Other: All systems not noted in ROS Statement are negative. Constitutional: Denies: fever Eyes: Denies: eye pain ENT: Denies: ear pain Respiratory: Denies: cough Cardiovascular: Denies: chest pain Endocrine: Denies: fatigue Gastrointestinal: Denies: abdominal pain Genitourinary: Denies: dysuria Musculoskeletal: Denies: back pain Skin: Denies: rash Neurological: Reports: as per HPI. Denies: headache, vertigo Past Medical History Past Medical History: Cancer, COPD, Diabetes Mellitus, GERD/Reflux, Hyperlipidemia, Osteoarthritis (OA), Prostate Disorder Additional Past Medical History / Comment(s): Degenerative arthritis affecting neck, back, legs and arms, NIDDM type II, 1989 stomach ulcer with upper GI bleed and transfusions, prostate cancer History of Any Multi-Drug Resistant Organisms: None Reported Past Surgical History: Cholecystectomy Additional Past Surgical History / Comment(s): salivary gland removed, colonoscopies with benign polyps, EGD with ulcer repair, bilateral CATARACTS w/ removal and lens implants. Past Anesthesia/Blood Transfusion Reactions: No Reported Reaction Additional Past Anesthesia/Blood Transfusion Reaction / Comment(s): HX OF BLOOD TRANSFUSION (1989)- NO PROBLEM. Past Psychological History: Depression Smoking Status: Current every day smoker Past Alcohol Use History: None Reported Past Drug Use History: Marijuana - Past Family History Sister(s) Family Medical History: Cancer Additional Family Medical History / Comment(s): BREAST & BONE CA Mother Family Medical History: No Reported History Additional Family Medical History / Comment(s): Mother was pretty healthy-she at age 94 yrs. General Exam Limitations: no limitations General appearance: alert, in no apparent distress Head exam: Present: normocephalic Eye exam: Present: normal appearance, PERRL, EOMI. Absent: nystagmus ENT exam: Present: normal oropharynx Neck exam: Present: normal inspection. Absent: tenderness Respiratory exam: Present: normal lung sounds bilaterally Cardiovascular Exam: Present: regular rate, normal rhythm GI/Abdominal exam: Present: soft. Absent: tenderness Extremities exam: Present: normal inspection, full ROM. Absent: tenderness Neurological exam: Present: alert, oriented X3, CN II-XII intact. Absent: motor sensory deficit Expanded Cranial nerves: EOM's Intact: Normal Sensory exam: Upper Extremity Light Touch: Normal, Lower Extremity Light Touch: Normal Motor strength exam: RUE: 5, LUE: 5, RLE: 5, LLE: 5 Eye Response: (4) open spontaneously Motor Response: (6) obeys commands Verbal Response: (5) oriented Psychiatric exam: Present: normal affect, normal mood Skin exam: Present: normal color Course Vital Signs 04/12/20 04/12/20 18:23 19:26 Temperature 97.7 F Pulse Rate 82 80 Respiratory 17 18 Rate Blood Pressure 136/78 130/71 O2 Sat by Pulse 97 95 Oximetry EKG Findings - EKG Comments: EKG Findings:: Sinus rhythm with a rate of 73. Premature atrial complexes. [place] 134. QRS 90. QT 396. QTc 436. Left axis. Q wave in aVF. No acute ST change. Medical Decision Making - Medical Decision Making Patient reevaluated. Patient and family updated. Case was discussed in detail with Dr. Augustine, who will admit covering for Dr. Pastrana. He would like computed tomography scan of chest abdomen and pelvis done tomorrow and agrees with Dec[facility]. - Lab Data Result diagrams: 04/12/20 19:19 04/12/20 19:19 Lab Results 04/12/20 04/12/20 04/12/20 Range/Units 19:19 19:19 19:19 WBC 8.5 (3.8-10.6) k/uL RBC 4.54 (4.30-5.90) m/uL Hgb 13.8 (13.0-17.5) gm/dL Hct 44.2 (39.0-53.0) % MCV 97.3 (80.0-100.0) fL MCH 30.5 (25.0-35.0) pg MCHC 31.3 (31.0-37.0) g/dL RDW 13.9 (11.5-15.5) % Plt Count 186 (150-450) k/uL Neutrophils % 73 % Lymphocytes % 19 % Monocytes % 4 % Eosinophils % 3 % Basophils % 1 % Neutrophils # 6.2 (1.3-7.7) k/uL Lymphocytes # 1.6 (1.0-4.8) k/uL Monocytes # 0.4 (0-1.0) k/uL Eosinophils # 0.2 (0-0.7) k/uL Basophils # 0.0 (0-0.2) k/uL PT 10.1 (9.0-12.0) sec INR 1.0 (<1.2) APTT 25.8 (22.0-30.0) sec Sodium (137-145) mmol/L Potassium (3.5-5.1) mmol/L Chloride (98-107) mmol/L Carbon Dioxide (22-30) mmol/L Anion Gap mmol/L BUN (9-20) mg/dL Creatinine (0.66-1.25) mg/dL Est GFR (CKD-EPI)AfAm (>60 ml/min/1.73 sqM) Est GFR (CKD-EPI)NonAf (>60 ml/min/1.73 sqM) Glucose (74-99) mg/dL Plasma Lactic Acid Darius (0.7-2.0) mmol/L Calcium (8.4-10.2) mg/dL Magnesium (1.6-2.3) mg/dL Total Bilirubin (0.2-1.3) mg/dL AST (17-59) U/L ALT (4-49) U/L Alkaline Phosphatase (38-126) U/L Troponin I (0.000-0.034) ng/mL Total Protein (6.3-8.2) g/dL Albumin (3.5-5.0) g/dL Urine Color Light Yellow Urine Appearance Clear (Clear) Urine pH 5.0 (5.0-8.0) Ur Specific [place] 1.010 (1.001-1.035) Urine Protein Negative (Negative) Urine Glucose (UA) Negative (Negative) Urine Ketones Negative (Negative) Urine Blood Negative (Negative) Urine Nitrite Negative (Negative) Urine Bilirubin Negative (Negative) Urine Urobilinogen <2.0 (<2.0) mg/dL Ur Leukocyte Esterase Negative (Negative) 04/12/20 04/12/20 04/12/20 Range/Units 19:19 19:19 19:19 WBC (3.8-10.6) k/uL RBC (4.30-5.90) m/uL Hgb (13.0-17.5) gm/dL Hct (39.0-53.0) % MCV (80.0-100.0) fL MCH (25.0-35.0) pg MCHC (31.0-37.0) g/dL RDW (11.5-15.5) % Plt Count (150-450) k/uL Neutrophils % % Lymphocytes % % Monocytes % % Eosinophils % % Basophils % % Neutrophils # (1.3-7.7) k/uL Lymphocytes # (1.0-4.8) k/uL Monocytes # (0-1.0) k/uL Eosinophils # (0-0.7) k/uL Basophils # (0-0.2) k/uL PT (9.0-12.0) sec INR (<1.2) APTT (22.0-30.0) sec Sodium 133 L (137-145) mmol/L Potassium 4.5 (3.5-5.1) mmol/L Chloride 104 (98-107) mmol/L Carbon Dioxide 23 (22-30) mmol/L Anion Gap 6 mmol/L BUN 22 H (9-20) mg/dL Creatinine 1.17 (0.66-1.25) mg/dL Est GFR (CKD-EPI)AfAm 69 (>60 ml/min/1.73 sqM) Est GFR (CKD-EPI)NonAf 59 (>60 ml/min/1.73 sqM) Glucose 100 H (74-99) mg/dL Plasma Lactic Acid Darius 1.0 (0.7-2.0) mmol/L Calcium 9.2 (8.4-10.2) mg/dL Magnesium 1.4 L (1.6-2.3) mg/dL Total Bilirubin 0.3 (0.2-1.3) mg/dL AST 20 (17-59) U/L ALT 8 (4-49) U/L Alkaline Phosphatase 83 (38-126) U/L Troponin I <0.012 (0.000-0.034) ng/mL Total Protein 6.4 (6.3-8.2) g/dL Albumin 3.7 (3.5-5.0) g/dL Urine Color Urine Appearance (Clear) Urine pH (5.0-8.0) Ur Specific [place] (1.001-1.035) Urine Protein (Negative) Urine Glucose (UA) (Negative) Urine Ketones (Negative) Urine Blood (Negative) Urine Nitrite (Negative) Urine Bilirubin (Negative) Urine Urobilinogen (<2.0) mg/dL Ur Leukocyte Esterase (Negative) - Radiology Data Radiology results: report reviewed (Computed tomography scan the rain concerning for numerous ringlike lesions throughout suspicious for metastatic lesions.), image reviewed (Chest x-ray shows borderline prominence of pulmonary vasculature) Disposition Clinical Impression: Brain lesion, Ataxia Disposition: ADMITTED IP TO THIS HOSP Is patient prescribed a controlled substance at d/c from ED?: No Referrals: Abelardo Pastrana MD [Primary Care Provider] - 1-2 days Decision Time: 21:34
--- NOTE | 2020-04-12 18:59 | CT ---
EXAMINATION TYPE: CT brain wo con DATE OF EXAM: 04/12/2020 COMPARISON: 03/24/2019 INDICATION: Weakness. DLP: 1099.4 mGycm, Automated exposure control for dose reduction was used. CONTRAST: None CT of the brain is performed utilizing 3 mm thick sections through the posterior fossa and 3 mm thick sections through the remaining calvarium. Study is performed within 24 hours of arrival to the hosp ital. No abnormal hyperdensity is present to suggest an acute intracranial hemorrhage. There multiple hypodensities was slightly hyperintense rims suspicious for multiple metastatic lesion s throughout the brain. These are bilateral and both above and below the tentorium. MRI with contrast is recommended for additional evaluation. No acute infarcts are evident. There may be an old lacunar infarct within the posterior lateral right cerebellum. Ventricles and sulci are appropriate for the patient age. No hydrocephalus is evident. Paranasal sinuses and mastoid air cells within the [id number] are clear. IMPRESSIONS: 1. Numerous ring like lesions throughout the brain suspicious for multiple metastatic lesions. Be tional workup with contrast MRI is recommended
--- NOTE | 2020-04-12 19:01 | XR ---
EXAMINATION TYPE: XR chest 2V DATE OF EXAM: 04/12/2020 COMPARISON: 03/24/2019 INDICATION: Weakness TECHNIQUE: Frontal and lateral views of the chest are obtained. FINDINGS: The heart size is normal. The pulmonary vasculature is borderline prominent. The lungs are clear. Degenerative changes are at the right shoulder IMPRESSION: 1. Borderline prominence of pulmonary vasculature. Correlate for volume overload
[2020-04-12 19:33] LABS: Appearance,Urine Clear (Clear); Basophils % (A) 1 %; Bilirubin,Urine Negative (Negative); Blood,Urine Negative (Negative); Color,Urine Light Yellow; Eosinophils # (A) 0.2 k/uL (0-0.7); Eosinophils % (A) 3 %; Glucose,Urine (UA) Negative (Negative); HCT 44.2 % (39.0-53.0); HGB 13.8 gm/dL (13.0-17.5); Ketones,Urine Negative (Negative); Leukocyte Esterase,Urine Negative (Negative); Lymphocytes # (A) 1.6 k/uL (1.0-4.8); Lymphocytes % (A) 19 %; MCH 30.5 pg (25.0-35.0); MCHC 31.3 g/dL (31.0-37.0); MCV 97.3 fL (80.0-100.0); Mean Platelet Volume 7.7; Monocytes # (A) 0.4 k/uL (0-1.0); Monocytes % (A) 4 %; Neutrophils # (A) 6.2 k/uL (1.3-7.7); Neutrophils % (A) 73 %; Nitrite,Urine Negative (Negative); Platelet Count 186 k/uL (150-450); Protein,Urine Negative (Negative); RBC 4.54 m/uL (4.30-5.90); RDW 13.9 % (11.5-15.5); Urobilinogen,Urine <2.0 mg/dL (<2.0); WBC 8.5 k/uL (3.8-10.6)
[2020-04-12 19:50] LABS: Albumin 3.7 g/dL (3.5-5.0); Calcium 9.2 mg/dL (8.4-10.2); Magnesium 1.4 mg/dL (1.6-2.3); Potassium 4.5 mmol/L (3.5-5.1); Total Bilirubin 0.3 mg/dL (0.2-1.3); Total Protein 6.4 g/dL (6.3-8.2)
[2020-04-12 20:03] LABS: Partial Thromboplastin Time 25.8 sec (22.0-30.0); Prothrombin Time 10.1 sec (9.0-12.0)
[2020-04-12] MEDS ORDERED: NALOXONE 0.4 MG/ML 1 ML VIAL IV PRN (21:39)
[2020-04-12] MEDS: SODIUM CHLORIDE 0.9% 1,000 ML IV SCH (22:48)
[2020-04-12] MEDS: DEXAMETHASONE SOD PHOSPHATE 4 MG/ML 1 ML VIAL IV SCH (22:49)
[2020-04-13] MEDS: HYDROcodone/APAP 10-325MG 1 EACH TAB PO PRN ×3 (01:44→20:38)
[2020-04-13] MEDS ORDERED: HYDROcodone/APAP 10-325MG 1 EACH TAB PO SCH (01:45)
[2020-04-13] MEDS: DEXAMETHASONE SOD PHOSPHATE 4 MG/ML 1 ML VIAL IV SCH ×3 (05:58→20:38)
[2020-04-13] MEDS: IOPAMIDOL CONTRAST (ORAL USE) VIAL PO PRN ×2 (08:05→09:16)
[2020-04-13] MEDS ORDERED: IPRATROPIUM-ALBUTEROL 3 ML NEB INHALATION PRN (10:35)
[2020-04-13] MEDS ORDERED: SODIUM CHLORIDE 0.65% NASAL SPRAY 44 ML BTL NASAL PRN (10:39)
[2020-04-13] MEDS: ASPIRIN 81 MG PO SCH (11:09)
[2020-04-13] MEDS: metFORMIN 500 MG TAB PO SCH ×2 (11:09→18:14)
[2020-04-13] MEDS: MONTELUKAST 10 MG TAB PO SCH (11:09)
[2020-04-13] MEDS: TAMSULOSIN 0.4 MG CAP.ER.24H PO SCH ×2 (11:12→20:38)
--- NOTE | 2020-04-13 11:18 | CT ---
EXAMINATION TYPE: CT ChestAbdPelvis w con DATE OF EXAM: 04/13/2020 COMPARISON: CT chest 03/28/2019 and chest abdomen and pelvis 01/12/2019. Chest x-ray 04/12/2020 HISTORY: 80-year-old male lesions, Evaluate for mass TECHNIQUE: Contiguous axial scanning of the chest, abdomen, and pelvis performed with IV Contrast, pa tient injected with 80 mL of Isovue 300. Delayed images through the kidneys were obtained. Coronal/sa gittal reconstructions performed. CT DLP: 1066 mGycm Automated exposure control for dose reduction was used. FINDINGS: CHEST: The heart is normal size with trace 4 mm pericardial effusion. Extensive three-vessel coronary artery calcifications are present. Scattered mild to moderate atherosclerotic arch calcifications with conventional arch vessel branchin g anatomy. Tortuous descending thoracic aorta. Enlarged anterior mediastinal lymph node at 2.5 x 1.9 cm versus 6 mm, previously. A nonenlarged 1.0 c m subcarinal lymph node now shows heterogeneous enhancement. A left infrahilar 1.6 cm soft tissue nodule along the left lateral wall of the esophagus is unchanged back to at least 01/12/2019. Stable subpleural reticulations within the lungs and some subpleural microcystic change at the lung b ases with some possible early honeycombing. Irregular 1.1 cm posterior left basilar pulmonary nodule overall unchanged in size but should continu e to be followed given the irregular appearance. No consolidation or pleural effusion. ABDOMEN: No focal liver lesion. Stable prominence of bile duct at 7 mm. Portal venous system is patent. Cholecystectomy clips. New nodularity within the bilateral adrenal glands measuring up to 1.3 and 1.0 cm on the right measur ing 1.8 and 1.1 cm on the left. Renal cortical thinning. Subcentimeter hypodensities on both sides to small for accurate CT character ization, likely cysts. Largest left laterally measures 1.3 cm. Spleen and pancreas show no gross adenopathy. Moderate atherosclerotic calcifications abdominal aorta and iliac arteries. Fusiform infrarenal AAA. Accurate measurement difficult due to tortuosity possibly measuring up to 3.5 cm. Consider abdominal aortic ultrasound evaluation. No dilated small bowel, free fluid, or free air. No mesenteric or retroperitoneal lymphadenopathy. Mild circumferential wall wall thickening of the cecum. Normal appendix. Scattered left-sided colonic diverticulosis, extensive within the sigmoid colon. PELVIS: Bladder urine distended. Prostate gland either very small or surgically absent. No abnormal enhanceme nt in the expected region of the prostate gland. No pelvic lymphadenopathy. Multiple pelvic phlebolit hs. BONES: Degenerative change of the hips. Advanced degenerative disc disease and hypertrophic facet arthropath y throughout the spine. Associated degenerative end plates sclerosis. Grade 1 retrolisthesis from L2 through L5 levels. The a ppearance remains similar as compared to 01/12/2019. IMPRESSION: 1. ANTERIOR MEDIASTINAL LYMPH NODE NOW ENLARGED AT 2.5 CM VERSUS 6 MM, PREVIOUSLY. FINDINGS SUGGEST M ETASTATIC DISEASE. A 1.0 CM SUBCARINAL LYMPH NODE IS NOT ENLARGED BUT GIVEN HETEROGENEOUS ENHANCEMENT , SHOULD ALSO BE REASSESSED AT FOLLOW-UP. 2. NEW BILATERAL ADRENAL NODULES MEASURING UP TO 1.8 CM. THESE ARE NEW, THEY ARE ALSO VIEWED WITH SUSPICION. 3. IRREGULAR 1.1 CM LEFT BASILAR PULMONARY NODULE REMAINS STABLE FROM 01/12/2019. CONTINUED LONG-TERM S URVEILLANCE TO EXCLUDE LOW-GRADE NEOPLASM. A 1.6 CM LEFT INFRAHILAR SOFT TISSUE NODULE/LYMPH NODE ARJUN NG THE ESOPHAGUS ALSO REMAINS UNCHANGED. 4. MILD CIRCUMFERENTIAL WALL THICKENING OF THE CECUM COULD REPRESENT NONSPECIFIC MILD COLITIS. DIVERT ICULOSIS, EXTENSIVE IN THE SIGMOID COLON WITHOUT ACUTE DIVERTICULITIS. 5. STABLE FIBROTIC CHANGES IN THE LUNGS, POSSIBLE EARLY UIP. CAD WITH EXTENSIVE THREE-VESSEL CORONARY ARTERY CALCIFICATIONS.
[2020-04-13 11:39] LABS: Glucose,Whole Blood 108 mg/dL (75-99)
[2020-04-13] MEDS: INSULIN ASPART (NovoLOG) 100 UNIT/ML VIAL SQ SCH ×3 (12:34→20:40)
[2020-04-13 17:19] LABS: Glucose,Whole Blood 130 mg/dL (75-99)
[2020-04-13] MEDS: ALPRAZolam 0.25 MG TAB PO PRN (18:14)
--- NOTE | 2020-04-13 18:17 | P.CONS ---
History of Present Illness - Reason for Consult Consult date: 04/13/20 brain metastases - History of Present Illness The patient is a 80-year-old white male, current smoker. The patient was in his usual state of health until about 6 weeks ago. He states that since then he's been having progressive weakness, lethargy, as well as some difficulty with balance. Symptoms were progressive leading to falls in the past few days, which was new for him. He therefore came into the emergency room with CT scan of the brain showing multiple bilateral lesions highly suspicious for brain metastasis. He was therefore admitted for further management. He denied any prior history of malignancy. No history of any headaches, visual complaints, nausea, vomiting, focal neurologic deficit difficulty in swallowing or speech. The patient states that he had started smoking in his late teens, but then quit about 25 years ago. He decided smoking again 10 years ago and smokes 1.5 packs a day. Review of Systems Constitutional: Reports weakness Eyes: denies blurred vision, denies pain Ears: deny: decreased hearing, ear discharge, earache Ears, nose, mouth and throat: Denies headache, Denies sore throat Cardiovascular: Reports decreased exercise tolerance Respiratory: Denies cough Gastrointestinal: Denies abdominal pain, Denies diarrhea, Denies nausea, Denies vomiting Genitourinary: Reports nocturia, Reports urinary hesitancy Musculoskeletal: Reports frequent falls, Reports gait dysfunction, Reports muscle weakness Integumentary: Denies pruritus, Denies rash Neurological: Reports as per HPI, Reports balance difficulties, Reports weakness Psychiatric: Denies anxiety, Denies depression Endocrine: Reports fatigue Hematologic/Lymphatic: Reports as per HPI Past Medical History Past Medical History: Cancer, COPD, Diabetes Mellitus, GERD/Reflux, Hyperlipidemia, Osteoarthritis (OA), Prostate Disorder Additional Past Medical History / Comment(s): Degenerative arthritis affecting neck, back, legs and arms, NIDDM type II, 1989 stomach ulcer with upper GI bleed and transfusions, prostate cancer History of Any Multi-Drug Resistant Organisms: None Reported Past Surgical History: Cholecystectomy Additional Past Surgical History / Comment(s): salivary gland removed, colonoscopies with benign polyps, EGD with ulcer repair, bilateral CATARACTS w/ removal and lens implants. Past Anesthesia/Blood Transfusion Reactions: No Reported Reaction Additional Past Anesthesia/Blood Transfusion Reaction / Comm: HX OF BLOOD TRANSFUSION (1989)- NO PROBLEM. Past Psychological History: Depression Additional Psychological History / Comment(s): pt does not drive-daughter or son takes patient to appointment. Smoking Status: Current every day smoker Past Alcohol Use History: None Reported Additional Past Alcohol Use History / Comment(s): Pt smoked from 6182-2012 then quit. He resumed smoking in 2009-november 2017 1ppd. Past Drug Use History: Marijuana - Past Family History Sister(s) Family Medical History: Cancer Additional Family Medical History / Comment(s): BREAST & BONE CA Mother Family Medical History: No Reported History Additional Family Medical History / Comment(s): Mother was pretty healthy-she at age 94 yrs. Medications and Allergies Home Medications Medication Instructions Recorded Confirmed Type Aspirin 81 mg PO DAILY 08/24/15 04/12/20 History HYDROcodone/APAP 10-325MG [[place] 2 tab PO Q12H 08/24/15 04/12/20 History 10-325] Montelukast [Singulair] 10 mg PO DAILY 08/24/15 04/12/20 History Omeprazole 40 mg PO DAILY 08/24/15 04/12/20 History Pravastatin Sodium [Pravachol] 40 mg PO HS 08/24/15 04/12/20 History metFORMIN HCL 1,000 mg PO DAILY 08/24/15 04/12/20 History Tamsulosin [Flomax] 0.4 mg PO BID 05/05/18 04/12/20 History Ipratropium-Albuterol Nebulize 3 ml INHALATION RT-QID PRN 04/12/20 04/12/20 History [Duoneb 0.5 mg-3 mg/3 ml Soln] Allergies Allergy/AdvReac Type Severity Reaction Status Date / Time No Known Allergies Allergy Verified 04/12/20 20:32 Physical Exam Vitals: Vital Signs Temp Pulse Pulse Resp BP BP Pulse Ox 04/13/20 11:11 97.3 F L 82 16 128/70 95 04/13/20 04:25 97.8 F 73 16 146/75 97 04/12/20 23:20 97.6 F 72 16 172/79 98 04/12/20 22:39 97.2 F L 77 18 159/71 94 L 04/12/20 19:26 80 18 130/71 95 04/12/20 18:23 97.7 F 82 17 136/78 97 Intake and Output 04/12/20 04/13/20 04/13/20 22:59 06:59 14:59 Intake Total 450 Output Total 700 Balance 450 -700 Intake: Intake, IV Titration 450 Amount Sodium Chloride 0.9% 1, 450 000 ml @ 75 mls/hr IV . [id number] STA Rx#:[id number] Output: Urine 700 Other: Voiding Method Urinal # Voids 2 Weight 71.668 kg 71.668 kg - Constitutional General appearance: no acute distress - EENT Eyes: EOMI, PERRLA ENT: hearing grossly normal, normal oropharynx - Neck Neck: no lymphadenopathy Thyroid: bilateral: normal size - Respiratory Respiratory: bilateral: CTA - Cardiovascular Rhythm: regular Heart sounds: normal: S1, S2 - Gastrointestinal General gastrointestinal: normal bowel sounds, soft - Integumentary Integumentary: normal - Neurologic Neurologic: CNII-XII intact - Musculoskeletal Musculoskeletal: generalized weakness, strength equal bilaterally - Psychiatric Psychiatric: A&O x's 3, appropriate affect Results CBC & Chem 7: 04/12/20 19:19 04/12/20 19:19 Labs: Abnormal Lab Results - Last 24 Hours (Table) 04/12/20 04/13/20 Range/Units 19:19 11:15 Sodium 133 L (137-145) mmol/L BUN 22 H (9-20) mg/dL Glucose 100 H (74-99) mg/dL POC Glucose (mg/dL) 108 H (75-99) mg/dL Magnesium 1.4 L (1.6-2.3) mg/dL CT Scan - head: report reviewed Assessment and Plan (1) Brain lesion Narrative/Plan: The patient is being seen because of diagnosis of multiple brain lesions highly suggestive of metastasis. He has symptoms as noted in the HPI. However, he does not appear to have any focal weakness at this time. The findings and implications were discussed in detail with him. He was advised that this is most suggestive of metastatic disease to the brain from another primary site. Given his history of smoking, along primaries, one of the major differentials. The patient will need additional imaging to check for primary site. CT of the chest abdomen and pelvis will be ordered. He was advised that if this is positive for suspicious lesion, then we would target that for a biopsy. If the chest abdomen pelvis is negative, then the patient will need neurosurgical evaluation for brain biopsy to establish diagnosis. - IV steroids to reduce vasogenic edema in the brain - Check brain MRI - consult radiation oncology Current Visit: Yes Status: Acute Code(s): G93.9 - DISORDER OF BRAIN, UNSPECIFIED SNOMED Code(s): 091819644 (2) Ataxia Narrative/Plan: Presumed to be due to brain metastasis. The patient does not have other focal deficits. Monitor on IV steroids. Fall precautions are in place. Current Visit: Yes Status: Acute Code(s): R27.0 - ATAXIA, UNSPECIFIED SNOMED Code(s): 42035660 Plan: defer to the admitting service nd other consultants for management of his other medical problems
[2020-04-13 20:32] LABS: Glucose,Whole Blood 122 mg/dL (75-99)
--- NOTE | 2020-04-13 20:32 | P.HPIM ---
History of Present Illness H&P Date: 04/13/20 Chief Complaint: Falls History of presenting complaint: This is a 80-year-old patient was chronic stable medical conditions include hyperlipidemia, GERD, hypertension, osteoarthritis, peptic ulcer disease and underlying COPD. Patient's had progressively poor balance. In the last 4 weeks as fallen down 3-4 times. Decreased appetite and weight loss. No palpitation or chest pain. No fever no chills. No change in bowel or urine patent. Computed tomography scan of the ER showed multiple metastatic lesions. Patient is put on IV Decadron. Oncology was consulted. Baseline shortness of breath and wheezing. Review of systems: GEN.: Decrease appetite and weight loss EYES: None HEENT: None NECK: None RESPIRATORY: Baseline wheezing and shortness of breath CARDIOVASCULAR: None GASTROINTESTINAL: None GENITOURINARY: None MUSCULOSKELETAL: Joint pains LYMPHATICS: None HEMATOLOGICAL: None PSYCHIATRY: None NEUROLOGICAL: None Past medical history to include: COPD, hyperlipidemia, GERD, hypertension, osteoarthritis, peptic ulcer disease, prostate cancer treated with radiation, depression Social history: Patient smoked from 6 through 1981. Then quit. Denies use smoking from 2009 to November 2017 1 pack a day. Son lives at home with him. No alcohol. Physical examination: VITAL SIGNS: 97.7, 82, 17, 136 with 78, 97% room air GENERAL: BMI 23.3, sitting on edge bed, tired appearing. EYES: Pupils equal. Conjunctiva normal. HEENT: External appearance of nose and ears normal, oral cavity grossly normal. NECK: JVD not raised; masses not palpable. HEART: First and second heart sounds are normal; no edema. LUNGS: Respiratory rate increased, poor air entry. ABDOMEN: Soft, nontender, liver spleen not palpable, no masses palpable. PSYCH: Alert and oriented x3; mood and affect anxiousl MUSCULAR skeletal: Evidence of OA, loss of subcutaneous fat and muscle mass. NEUROLOGICAL: Cranial nerves grossly intact; no facial asymmetry, power and sensation grossly intact. LYMPHATICS: No lymph nodes palpable in the axilla and neck INVESTIGATIONS, reviewed in the clinical context: White count 8.5 hemoglobin 13.8 platelets 186 potassium 4.5 creatinine 1.17 Troponin I less than 0.012, proBNP 323 UA negative EKG tracing personally reviewed by me-normal sinus rhythm poor LV progression Chest x-ray film personally reviewed by me-hyperinflation Computed tomography scan of the brain-numerous ringlike lesions throughout the brain Computed tomography scan chest abdomen pelvis with contrast-and large anterior mediastinal lymph node, unchanged lung nodules, DJD changes. Bilateral adrenal nodules 1.8 cm Assessment: -Multiple metastatic brain lesions ring-enhancing, primary is unknown. Patient long-standing smoker with some prominent lymph nodes. May benefit from bronchoscopy for endobronchial lesions. -Bilateral adrenal nodules 1.8 cm -COPD in a smoker -Dilutional with this type II -GERD -Hyperlipidemia -Primary osteoarthritis -History of prostate cancer -Mild protein calorie malnutrition -Diabetes mellitus type 2 on oral hypoglycemic Plan: Oncology was consulted. We'll also consult pulmonary. With a view to possible bronchoscopy and biopsy. Other home medications and resume. Start the patient on nebulized bronchodilators and steroids. Prognosis guarded Past Medical History Past Medical History: Cancer, COPD, Diabetes Mellitus, GERD/Reflux, Hyperlipidemia, Osteoarthritis (OA), Prostate Disorder Additional Past Medical History / Comment(s): Degenerative arthritis affecting neck, back, legs and arms, NIDDM type II, 1989 stomach ulcer with upper GI bleed and transfusions, prostate cancer History of Any Multi-Drug Resistant Organisms: None Reported Past Surgical History: Cholecystectomy Additional Past Surgical History / Comment(s): salivary gland removed, colonoscopies with benign polyps, EGD with ulcer repair, bilateral CATARACTS w/ removal and lens implants. Past Anesthesia/Blood Transfusion Reactions: No Reported Reaction Additional Past Anesthesia/Blood Transfusion Reaction / Comment(s): HX OF BLOOD TRANSFUSION (1989)- NO PROBLEM. Past Psychological History: Depression Additional Psychological History / Comment(s): pt does not drive-daughter or son takes patient to appointment. Smoking Status: Current every day smoker Past Alcohol Use History: None Reported Additional Past Alcohol Use History / Comment(s): Pt smoked from 5035-3521 then quit. He resumed smoking in 2009-november 2017 1ppd. Past Drug Use History: Marijuana - Past Family History Sister(s) Family Medical History: Cancer Additional Family Medical History / Comment(s): BREAST & BONE CA Mother Family Medical History: No Reported History Additional Family Medical History / Comment(s): Mother was pretty healthy-she at age 94 yrs. Medications and Allergies Home Medications Medication Instructions Recorded Confirmed Type Aspirin 81 mg PO DAILY 08/24/15 04/12/20 History HYDROcodone/APAP 10-325MG [[place] 2 tab PO Q12H 08/24/15 04/12/20 History 10-325] Montelukast [Singulair] 10 mg PO DAILY 08/24/15 04/12/20 History Omeprazole 40 mg PO DAILY 08/24/15 04/12/20 History Pravastatin Sodium [Pravachol] 40 mg PO HS 08/24/15 04/12/20 History metFORMIN HCL 1,000 mg PO DAILY 08/24/15 04/12/20 History Tamsulosin [Flomax] 0.4 mg PO BID 05/05/18 04/12/20 History Ipratropium-Albuterol Nebulize 3 ml INHALATION RT-QID PRN 04/12/20 04/12/20 History [Duoneb 0.5 mg-3 mg/3 ml Soln] Allergies Allergy/AdvReac Type Severity Reaction Status Date / Time No Known Allergies Allergy Verified 04/12/20 20:32 Physical Exam Vitals: Vital Signs Temp Pulse Pulse Resp BP BP Pulse Ox 04/13/20 04:25 97.8 F 73 16 146/75 97 04/12/20 23:20 97.6 F 72 16 172/79 98 04/12/20 22:39 97.2 F L 77 18 159/71 94 L 04/12/20 19:26 80 18 130/71 95 04/12/20 18:23 97.7 F 82 17 136/78 97 Intake and Output 04/12/20 04/13/20 04/13/20 22:59 06:59 14:59 Intake Total 450 Output Total 700 Balance 450 -700 Intake: Intake, IV Titration 450 Amount Sodium Chloride 0.9% 1, 450 000 ml @ 75 mls/hr IV . [id number] STA Rx#:[id number] Output: Urine 700 Other: Voiding Method Urinal # Voids 2 Weight 71.668 kg 71.668 kg Results CBC & Chem 7: 04/12/20 19:19 04/12/20 19:19 Labs: Abnormal Lab Results - Last 24 Hours (Table) 04/12/20 Range/Units 19:19 Sodium 133 L (137-145) mmol/L BUN 22 H (9-20) mg/dL Glucose 100 H (74-99) mg/dL Magnesium 1.4 L (1.6-2.3) mg/dL Thrombosis Risk Factor Assmnt - Choose All That Apply Any of the Below Risk Factors Present?: Yes Each Factor Represents 1 point: Abnormal pulmonary function (COPD) Other Risk Factors: Yes Each Risk Factor Represents 2 Points: Malignancy Each Risk Factor Represents 3 Points: Age 75 years or older Thrombosis Risk Factor Assessment Total Risk Factor Score: 6 Thrombosis Risk Factor Assessment Level: High Risk
[2020-04-13] MEDS: MELATONIN 3 MG TABLET PO SCH (20:38)
[2020-04-13] MEDS: PRAVASTATIN SODIUM 40 MG TAB PO SCH (20:38)
--- NOTE | 2020-04-13 22:48 | CT ---
EXAMINATION TYPE: CT brain cspine wo con DATE OF EXAM: 04/13/2020 COMPARISON: CT brain 04/12/2020 HISTORY: Fall And 8. Neck pain CT DLP: 1127.70 mGycm Automated exposure control for dose reduction was used. There is some cerebral cortical atrophy. There are numerous ring like masses throughout the brain par enchyma that measure up to 1.5 cm and suggestive of embolic disease. This could be metastatic disease . There is no midline shift. There is no sign of intracranial hemorrhage. Cervical vertebra have normal alignment. There is disc space narrowing at C3-4 with spur formation. P osterior elements are intact. There is multilevel mild facet arthropathy. The skull base is intact. T he calvarium appears intact. IMPRESSION: Numerous intra-axial lesions consistent with metastatic disease unchanged compared to recent CT scan. Spondylotic changes in the cervical spine mainly more severe at C3-4. No fracture.
[2020-04-13] MEDS: SODIUM CHLORIDE 0.9% 1,000 ML IV SCH (23:33)
[2020-04-14] MEDS: DEXAMETHASONE SOD PHOSPHATE 4 MG/ML 1 ML VIAL IV SCH ×3 (06:00→21:02)
[2020-04-14 07:00] LABS: Glucose,Whole Blood 165 mg/dL (75-99)
[2020-04-14] MEDS: INSULIN ASPART (NovoLOG) 100 UNIT/ML VIAL SQ SCH ×4 (07:59→21:18)
[2020-04-14] MEDS: PANTOPRAZOLE 40 MG TABLET PO SCH (07:59)
[2020-04-14] MEDS: TAMSULOSIN 0.4 MG CAP.ER.24H PO SCH ×2 (07:59→21:02)
[2020-04-14] MEDS: ASPIRIN 81 MG PO SCH (07:59)
[2020-04-14] MEDS: MONTELUKAST 10 MG TAB PO SCH (08:00)
[2020-04-14] MEDS: metFORMIN 500 MG TAB PO SCH ×2 (08:00→17:52)
[2020-04-14 12:18] LABS: Glucose,Whole Blood 113 mg/dL (75-99)
[2020-04-14 12:57] LABS: Hemoglobin A1C 6.2 % (4.0-6.0)
[2020-04-14] MEDS: ALPRAZolam 0.25 MG TAB PO PRN ×2 (12:58→21:05)
[2020-04-14] MEDS: HYDROcodone/APAP 10-325MG 1 EACH TAB PO PRN (12:58)
--- NOTE | 2020-04-14 14:09 | CT ---
EXAMINATION TYPE: CT biopsy lymph node DATE OF EXAM: 04/14/2020 HISTORY: Metastatic disease, mediastinal adenopathy COMPARISON: CT 04/13/2020 Maximal barrier technique was utilized, hand hygiene obtained with soap and water. The skin overlyin g a suitable path to the mediastinal adenopathy was localized using CT and the overlying skin was pre pped and draped. Lidocaine used for local anesthesia. A skin higinio made with a scalpel. Using CT gu idance, access was gained to the lesion with a 20-gauge core needle through a 19-gauge introducer. C ore specimen submitted to pathology on [place], single pass was performed, patient had difficulty c ooperating with the procedure. Following the procedure no immediate complications. The patient is d ischarged in stable condition. Hemostasis achieved. IMPRESSION: SUCCESSFUL CT GUIDED CORE BIOPSY mediastinal node. PATHOLOGY PENDING. THIS PROCEDURE WAS PERFORMED BY THE UNDERSIGNED.
--- NOTE | 2020-04-14 14:31 | NM ---
EXAMINATION TYPE: NM bone scan whole body DATE OF EXAM: 04/14/2020 COMPARISON: NONE HISTORY: Metastatic evaluation Delayed whole-body scanning was performed following the injection of 21.0 mCi Tc 99m MDP. Images wer e acquired 3.5 hours post injection. FINDINGS: Some contamination is within the lower groin region. Large radiotracer accumulation at the right shoulder is again evident. Slightly less intense in david rison. Metastasis may be present, present Previously. There is some mild focal uptake within the lower left anterior L5 right IMPRESSION: 1. Radiotracer at the right shoulder can be related to metastasis. 2. Diminished lower lumbar spine uptake.
--- NOTE | 2020-04-14 14:33 | XR ---
EXAMINATION TYPE: XR chest 1V portable DATE OF EXAM: 04/14/2020 COMPARISON: 04/12/2020 INDICATION: Post mediastinal biopsy TECHNIQUE: Single frontal view of the chest is obtained. FINDINGS: The heart size is normal. Mediastinum appears normal without widening. The pulmonary vasculature is normal. The lungs are clear. No pneumothorax or pneumomediastinum is evident IMPRESSION: 1. No acute pulmonary process.
--- NOTE | 2020-04-14 14:42 | P.CNPUL ---
History of Present Illness Consult date: 04/14/20 Requesting physician: Jose Augustine Reason for consult: abnormal CXR/CT Chief complaint: Weakness, falls History of present illness: This is a pleasant 80-year-old gentleman who follows Dr. Pastrana as his primary care provider. He has a history of diabetes mellitus, type II, gastric ulcers, hyperlipidemia, gastric esophageal reflux disease, prostate cancer. He has has a history of chronic obstructive pulmonary disease and chronic and ongoing tobacco dependence. He follows with Dr. Rajput in our office. He was last seen in April 2019. At that time he was noted to have a left lower lobe nodule with slight uptake in the nodule in the left infrahilar lymph node not significantly positive for malignancy but suspicious. The patient was deemed a poor candidate for any surgical intervention at that time and the node was too small to biopsy. He presented to the emergency room yesterday with increasing weakness and frequent falls. CAT scan of the chest abdomen and pelvis revealed a enlarging anterior mediastinal lymph node at 2.5 cm versus 6 mm previously. There is a 1.0 cm subcarinal lymph node. New bilateral adrenal nodules measuring up to 1.8 cm. These are new as well. There is a left basilar pulmonary nodule remains stable from January 2019 at 1.1 cm. Computed tomography scan of the brain revealed numerous intra-axial lesions consistent with metastatic prostatic disease. The patient was seen today in consultation. He is currently sitting up in a chair at the bedside. Awake and alert in no acute distress. He is quite disheveled and weak. He is maintaining O2 saturations in the mid 90s on room air. He is afebrile. Hemodynamically stable. He currently denies any worsening shortness of breath, cough or congestion. He denies hemoptysis. He has been losing weight. He has been initiated on Decadron. Bone scan is pending. Review of Systems REVIEW OF SYSTEMS: CONSTITUTIONAL: Generalized weakness, frequent falls. Positive for weight loss. EYES: Denies change in vision. EARS, NOSE, MOUTH, THROAT: Denies headaches, denies sore throat. CARDIOVASCULAR: Denies chest pain, palpitations or syncopal episodes. RESPIRATORY: Denies shortness of breath, cough, congestion or hemoptysis. GASTROINTESTINAL: Denies change in appetite, denies abdominal pain GENITOURINARY: Denies hematuria, denies infections. MUSKULOSKELETAL: Denies pain, denies swelling. INTEGUMENTARY: Denies rash, denies eczema. NEUROLOGICAL: Denies recent memory loss, no recent seizure activity. PSYCHIATRIC: Denies anxiety, denies depression. HEMATOLOGIC/LYMPHATIC: Denies anemia, denies enlarged lymph nodes. Past Medical History Past Medical History: Cancer, COPD, Diabetes Mellitus, GERD/Reflux, Hyperlipidemia, Osteoarthritis (OA), Prostate Disorder Additional Past Medical History / Comment(s): Degenerative arthritis affecting neck, back, legs and arms, NIDDM type II, 1989 stomach ulcer with upper GI bleed and transfusions, prostate cancer History of Any Multi-Drug Resistant Organisms: None Reported Past Surgical History: Cholecystectomy Additional Past Surgical History / Comment(s): salivary gland removed, colonoscopies with benign polyps, EGD with ulcer repair, bilateral CATARACTS w/ removal and lens implants. Past Anesthesia/Blood Transfusion Reactions: No Reported Reaction Additional Past Anesthesia/Blood Transfusion Reaction / Comment(s): HX OF BLOOD TRANSFUSION (1989)- NO PROBLEM. Past Psychological History: Depression Additional Psychological History / Comment(s): pt does not drive-daughter or son takes patient to appointment. Smoking Status: Current every day smoker Past Alcohol Use History: None Reported Additional Past Alcohol Use History / Comment(s): Pt smoked from 5840-5284 then quit. He resumed smoking in 2009-november 2017 1ppd. Past Drug Use History: Marijuana - Past Family History Sister(s) Family Medical History: Cancer Additional Family Medical History / Comment(s): BREAST & BONE CA Mother Family Medical History: No Reported History Additional Family Medical History / Comment(s): Mother was pretty healthy-she at age 94 yrs. Medications and Allergies Home Medications Medication Instructions Recorded Confirmed Type Aspirin 81 mg PO DAILY 08/24/15 04/12/20 History HYDROcodone/APAP 10-325MG [[place] 2 tab PO Q12H 08/24/15 04/12/20 History 10-325] Montelukast [Singulair] 10 mg PO DAILY 08/24/15 04/12/20 History Omeprazole 40 mg PO DAILY 08/24/15 04/12/20 History Pravastatin Sodium [Pravachol] 40 mg PO HS 08/24/15 04/12/20 History metFORMIN HCL 1,000 mg PO DAILY 08/24/15 04/12/20 History Tamsulosin [Flomax] 0.4 mg PO BID 05/05/18 04/12/20 History Ipratropium-Albuterol Nebulize 3 ml INHALATION RT-QID PRN 04/12/20 04/12/20 History [Duoneb 0.5 mg-3 mg/3 ml Soln] Allergies Allergy/AdvReac Type Severity Reaction Status Date / Time No Known Allergies Allergy Verified 04/12/20 20:32 Physical Exam Vitals: Vital Signs Temp Pulse Resp BP Pulse Ox 04/14/20 13:50 72 18 140/80 96 04/14/20 13:36 75 18 140/76 94 L 04/14/20 13:18 71 18 143/83 97 04/14/20 12:06 97.5 F L 72 18 116/78 96 04/14/20 05:25 97.6 F 74 18 147/75 96 04/13/20 21:00 97.7 F 87 18 160/88 96 04/13/20 20:39 97.5 F L 90 18 149/73 95 Intake and Output 04/13/20 04/14/20 04/14/20 22:59 06:59 14:59 Output Total 250 Balance -250 Output: Urine 250 Other: Voiding Method Urinal # Voids 1 GENERAL EXAM: Alert, well, cachectic 80-year-old gentleman, on room air, comfortable in no apparent distress. HEAD: Normocephalic. EYES: Normal reaction of pupils, equal size. NOSE: Clear with pink turbinates. THROAT: No erythema or exudates. NECK: No masses, no JVD. CHEST: No chest wall deformity. LUNGS: Equal air entry with no crackles, wheeze, rhonchi or dullness. CVS: S1 and S2 normal with no audible murmur, regular rhythm. ABDOMEN: No hepatosplenomegaly, normal bowel sounds, no guarding or rigidity. SPINE: No scoliosis or deformity SKIN: No rashes CENTRAL NERVOUS SYSTEM: No focal deficits, tone is normal in all 4 extremities. EXTREMITIES: There is no peripheral edema. No clubbing, no cyanosis. Peripheral pulses are intact. Results - Laboratory Findings CBC and BMP: 04/12/20 19:19 04/12/20 19:19 PT/INR, D-dimer PT 10.1 sec (9.0-12.0) 04/12/20 19:19 INR 1.0 (<1.2) 04/12/20 19:19 Abnormal lab findings: Abnormal Labs 04/12/20 04/13/20 04/13/20 19:19 11:15 11:56 Sodium 133 L BUN 22 H Glucose 100 H POC Glucose (mg/dL) 108 H Hemoglobin A1c 6.2 H Magnesium 1.4 L 04/13/20 04/13/20 04/14/20 17:12 20:31 06:58 Sodium BUN Glucose POC Glucose (mg/dL) 130 H 122 H 165 H Hemoglobin A1c Magnesium 04/14/20 12:16 Sodium BUN Glucose POC Glucose (mg/dL) 113 H Hemoglobin A1c Magnesium - Diagnostic Findings Chest x-ray: image reviewed CT scan - chest: image reviewed Assessment and Plan Assessment: 1 Generalized weakness and frequent falls secondary to metastatic disease. CAT scan does reveal numerous intra-axial lesions consistent with metastatic disease. 2 Enlarging anterior mediastinal lymph node now measuring 2.5 cm versus 6 mm in January 2019. Suggestive of metastatic disease. Stable irregular 1.1 cm left basilar pulmonary nodule. Stable 1.6 cm left infrahilar soft tissue nodule/lymph node along the esophagus. 3 New bilateral adrenal nodules measuring up to 1.8 cm. 4 Chronic and ongoing tobacco dependence 5 Chronic obstructive pulmonary disease 6 Diabetes mellitus, type II 7 GERD 8 Hyperlipidemia 9 Primary osteoarthritis 10 History of prostate cancer 11 Poor overall functional performance based on the above-mentioned multiple comorbidities Plan: The patient was seen and evaluated by Dr. Rajput CAT scans reviewed Plan is for interventional radiology to perform fine-needle aspirate of either the anterior mediastinal lymph node or possibly the adrenal mass Patient's overall prognosis remains quite guarded We will continue to follow and make further recommendations based on his clinical status I, the cosigning physician, performed a history & physical examination of the patient. Lungs sounds are clear, managed. Maintaining good O2 saturations in the 90s on room air. I discussed the assessment and plan of care with my nurse practitioner, Lolly Doan. I attest to the above consultation as dictated by her. Time with Patient: Greater than 30
[2020-04-14 17:15] LABS: Glucose,Whole Blood 128 mg/dL (75-99)
[2020-04-14] MEDS: SODIUM CHLORIDE 0.9% 1,000 ML IV SCH (17:52)
[2020-04-14] MEDS: PRAVASTATIN SODIUM 40 MG TAB PO SCH (21:02)
[2020-04-14] MEDS: MELATONIN 3 MG TABLET PO SCH (21:02)
--- NOTE | 2020-04-14 21:16 | P.PN ---
Progress Note - Text Progress Note Date: 04/14/20 Chief Complaint: Falls History of presenting complaint: This is a 80-year-old patient was chronic stable medical conditions include hyperlipidemia, GERD, hypertension, osteoarthritis, peptic ulcer disease and underlying COPD. Patient's had progressively poor balance. In the last 4 weeks has fallen down 3-4 times. Decreased appetite and weight loss. No palpitation or chest pain. No fever no chills. No change in bowel or urine patent. Computed tomography scan of the ER showed multiple ring-enhancing lesions. Patient is put on IV Decadron. Oncology was consulted. Baseline shortness of breath and wheezing. Admitted with multiple brain enhancing lesions. Primary unknown. On IV Decadron. Today-sitting up in a chair. Tired Getting IV fluids. Later today patient underwent lymph node biopsy by interventional radiology. Review of systems: Was done for constitutional, cardiovascular, GI, pulmonary. relevant finding as above Active Medications Hydrocodone Bitart/Acetaminophen (Hydrocodone/Apap 10-325mg 1 Each Tab) 1 each PO Q6H PRN PRN Reason: Pain Last Admin: 04/14/20 12:58 Dose: 1 each Documented by: Albuterol/Ipratropium (Ipratropium-Albuterol 3 Ml Neb) 3 ml INHALATION RT-QID PRN PRN Reason: Shortness Of Breath Alprazolam (Alprazolam 0.25 Mg Tab) 0.25 mg PO Q6HR PRN PRN Reason: Anxiety Last Admin: 04/14/20 21:05 Dose: 0.25 mg Documented by: Aspirin (Aspirin 81 Mg) 81 mg PO DAILY [facility] Last Admin: 04/14/20 07:59 Dose: 81 mg Documented by: Dexamethasone Sodium Phosphate (Dexamethasone Sod Phosphate 4 Mg/Ml 1 Ml Vial) 4 mg IV Q8H [facility] Last Admin: 04/14/20 21:02 Dose: 4 mg Documented by: Sodium Chloride (Saline 0.9%) 1,000 mls @ 20 mls/hr IV .Q24H [facility] Last Admin: 04/14/20 17:52 Dose: 20 mls/hr Documented by: Insulin Aspart (Insulin Aspart (Novolog) 100 Unit/Ml Vial) 0 unit SQ ACHS [facility]; Protocol Last Admin: 04/14/20 17:22 Dose: Not Given Documented by: Melatonin (Melatonin 3 Mg Tablet) 6 mg PO HS [facility] Last Admin: 04/14/20 21:02 Dose: 6 mg Documented by: Metformin HCl (Metformin 500 Mg Tab) 500 mg PO AC-BID [facility] Last Admin: 04/14/20 17:52 Dose: 500 mg Documented by: Montelukast Sodium (Montelukast 10 Mg Tab) 10 mg PO DAILY [facility] Last Admin: 04/14/20 08:00 Dose: 10 mg Documented by: Naloxone HCl (Naloxone 0.4 Mg/Ml 1 Ml Vial) 0.2 mg IV Q2M PRN PRN Reason: Opioid Reversal Pantoprazole Sodium (Pantoprazole 40 Mg Tablet) 40 mg PO DAILY@0730 [facility] Last Admin: 04/14/20 07:59 Dose: 40 mg Documented by: Pravastatin Sodium (Pravastatin Sodium 40 Mg Tab) [address] [facility] Last Admin: 04/14/20 21:02 Dose: 40 mg Documented by: Sodium Chloride (Sodium Chloride 0.65% Nasal [place] 44 Ml Btl) 2 spray NASAL QID PRN PRN Reason: Dry Nasal [place] Last Admin: 04/13/20 11:09 Dose: 2 spray Documented by: Tamsulosin HCl (Tamsulosin 0.4 Mg Cap.Er.24h) 0.4 mg PO BID [facility] Last Admin: 04/14/20 21:02 Dose: 0.4 mg Documented by: Physical examination: VITAL SIGNS: 97.5, 72, 18, 116/78, 96% room air GENERAL: Sitting up in a chair, tired EYES: Pupils equal. Conjunctiva normal. NECK: JVD not raised; masses not palpable. HEART: First and second heart sounds are normal; no edema. LUNGS: Respiratory rate increased, poor air entry. ABDOMEN: Soft, nontender, liver spleen not palpable, no masses palpable. PSYCH: Alert and oriented x3; mood and affect anxious MUSCULAR skeletal: Evidence of OA, loss of subcutaneous fat and muscle mass. INVESTIGATIONS, reviewed in the clinical context: Bone scan-redo trace of the right shoulder, diminished lower lumbar spine uptake. White count 8.5 hemoglobin 13.8 platelets 186 potassium 4.5 creatinine 1.17 Troponin I less than 0.012, proBNP 323 UA negative EKG tracing personally reviewed by me-normal sinus rhythm poor LV progression Chest x-ray film personally reviewed by me-hyperinflation Computed tomography scan of the brain-numerous ringlike lesions throughout the brain Computed tomography scan chest abdomen pelvis with contrast-and large anterior mediastinal lymph node, unchanged lung nodules, DJD changes. Bilateral adrenal nodules 1.8 cm Assessment: -Multiple metastatic brain lesions ring-enhancing, primary is unknown. Patient long-standing smoker with some prominent pulmonary lymph nodes. Today underwent biopsy by interventional radiology. -Bilateral adrenal nodules 1.8 cm -COPD in a smoker -Diabetes mellitus type II -GERD -Hyperlipidemia -Primary osteoarthritis -History of prostate cancer -Mild protein calorie malnutrition -Diabetes mellitus type 2 on oral hypoglycemic -Medical debility Plan: IV fluids. IV Decadron. Biopsy of lymph node done. Await results. Continue with supportive care.
[2020-04-14 21:18] LABS: Glucose,Whole Blood 108 mg/dL (75-99)
[2020-04-14] MEDS: IPRATROPIUM-ALBUTEROL 3 ML NEB INHALATION SCH (21:45)
[2020-04-15] MEDS: ALPRAZolam 0.25 MG TAB PO PRN ×3 (03:02→20:56)
[2020-04-15] MEDS: HYDROcodone/APAP 10-325MG 1 EACH TAB PO PRN ×3 (04:41→21:00)
[2020-04-15] MEDS: DEXAMETHASONE SOD PHOSPHATE 4 MG/ML 1 ML VIAL IV SCH ×3 (06:00→20:59)
[2020-04-15 07:11] LABS: Glucose,Whole Blood 112 mg/dL (75-99)
[2020-04-15] MEDS: ASPIRIN 81 MG PO SCH (07:22)
[2020-04-15] MEDS: IPRATROPIUM-ALBUTEROL 3 ML NEB INHALATION SCH ×4 (07:24→20:16)
[2020-04-15] MEDS: INSULIN ASPART (NovoLOG) 100 UNIT/ML VIAL SQ SCH ×4 (08:30→20:55)
[2020-04-15] MEDS: metFORMIN 500 MG TAB PO SCH ×2 (08:41→17:08)
[2020-04-15] MEDS: PANTOPRAZOLE 40 MG TABLET PO SCH (08:41)
[2020-04-15] MEDS: MONTELUKAST 10 MG TAB PO SCH (08:41)
[2020-04-15] MEDS: TAMSULOSIN 0.4 MG CAP.ER.24H PO SCH ×2 (08:43→20:55)
[2020-04-15 11:27] LABS: Glucose,Whole Blood 117 mg/dL (75-99)
--- NOTE | 2020-04-15 11:59 | P.PN ---
Subjective Progress Note Date: 04/15/20 Principal diagnosis: Otherwise weakness with frequent falls secondary to metastatic disease This is a pleasant 80-year-old gentleman who follows Dr. Pastrana as his primary care provider. He has a history of diabetes mellitus, type II, gastric ulcers, hyperlipidemia, gastric esophageal reflux disease, prostate cancer. He has has a history of chronic obstructive pulmonary disease and chronic and ongoing tobacco dependence. He follows with Dr. Rajput in our office. He was last seen in April 2019. At that time he was noted to have a left lower lobe nodule with slight uptake in the nodule in the left infrahilar lymph node not significantly positive for malignancy but suspicious. The patient was deemed a poor candidate for any surgical intervention at that time and the node was too small to biopsy. He presented to the emergency room yesterday with increasing weakness and frequent falls. CAT scan of the chest abdomen and pelvis revealed a enlarging anterior mediastinal lymph node at 2.5 cm versus 6 mm previously. There is a 1.0 cm subcarinal lymph node. New bilateral adrenal nodules measuring up to 1.8 cm. These are new as well. There is a left basilar pulmonary nodule remains stable from January 2019 at 1.1 cm. Computed tomography scan of the brain revealed numerous intra-axial lesions consistent with metastatic prostatic disease. The patient was seen today in consultation. He is currently sitting up in a chair at the bedside. Awake and alert in no acute distress. He is quite disheveled and weak. He is maintaining O2 saturations in the mid 90s on room air. He is afebrile. Hemodynamically stable. He currently denies any worsening shortness of breath, cough or congestion. He denies hemoptysis. He has been losing weight. He has been initiated on Decadron. Bone scan is pending. The patient is seen today 04/15/2020 in follow-up on the oncology unit. He is currently sitting up at the bedside. Awake and alert in no acute distress. Currently maintaining good O2 saturations in the upper 90s on room air. He's afebrile. Hemodynamically stable. Blood glucose 117. He did undergo mediastinal lymph node biopsy yesterday. Pathology pending. Follow-up chest x- ray reveals no evidence of pneumothorax. No acute pulmonary process. Bone scan revealed large radiotracer accumulation of the right shoulder suspect metastasis. Radiation oncology and medical oncology are on the case. Objective - Vital Signs Vital signs: Vital Signs Temp 98.1 F 04/15/20 11:41 Pulse 65 04/15/20 11:41 Resp 17 04/15/20 11:41 BP 129/68 04/15/20 11:41 Pulse Ox 98 04/15/20 11:41 Intake & Output 04/14/20 04/15/20 04/15/20 18:59 06:59 18:59 Intake Total 160 Output Total 250 Balance 160 -250 Intake: Intake, IV Titration 160 Amount Sodium Chloride 0.9% 1, 160 000 ml @ 20 mls/hr IV . Q24H [facility] Rx#:[id number] Output: Urine 250 Other: Voiding Method Urinal Urinal # Voids 3 2 # Bowel Movements 2 - Exam GENERAL EXAM: Alert, frail, cachectic 80-year-old gentleman, on room air, comfortable in no apparent distress. HEAD: Normocephalic. EYES: Normal reaction of pupils, equal size. NOSE: Clear with pink turbinates. THROAT: No erythema or exudates. NECK: No masses, no JVD. CHEST: No chest wall deformity. LUNGS: Equal air entry with no crackles, wheeze, rhonchi or dullness. CVS: S1 and S2 normal with no audible murmur, regular rhythm. ABDOMEN: No hepatosplenomegaly, normal bowel sounds, no guarding or rigidity. SPINE: No scoliosis or deformity SKIN: No rashes CENTRAL NERVOUS SYSTEM: No focal deficits, tone is normal in all 4 extremities. EXTREMITIES: There is no peripheral edema. No clubbing, no cyanosis. Peripheral pulses are intact. - Labs CBC & Chem 7: 04/12/20 19:19 04/12/20 19:19 Labs: Abnormal Lab Results - Last 24 Hours (Table) 04/13/20 04/14/20 04/14/20 Range/Units 11:56 12:16 17:11 POC Glucose (mg/dL) 113 H 128 H (75-99) mg/dL Hemoglobin A1c 6.2 H (4.0-6.0) % 04/14/20 04/15/20 04/15/20 Range/Units 21:17 07:09 11:26 POC Glucose (mg/dL) 108 H 112 H 117 H (75-99) mg/dL Hemoglobin A1c (4.0-6.0) % Assessment and Plan Assessment: 1 Generalized weakness and frequent falls secondary to metastatic disease. CAT scan of the brain does reveal numerous intra-axial lesions consistent with metastatic disease. Bone scan reveals radiotracer uptake in the right shoulder suspicious for metastases. 2 Enlarging anterior mediastinal lymph node now measuring 2.5 cm versus 6 mm in January 2019. Suggestive of metastatic disease. Stable irregular 1.1 cm left basilar pulmonary nodule. Stable 1.6 cm left infrahilar soft tissue nodule/lymph node along the esophagus. Status post FNA of the mediastinal lymph node on 04/14/2020 by IR. Pathology pending. 3 New bilateral adrenal nodules measuring up to 1.8 cm. 4 Chronic and ongoing tobacco dependence 5 Chronic obstructive pulmonary disease 6 Diabetes mellitus, type II 7 GERD 8 Hyperlipidemia 9 Primary osteoarthritis 10 History of prostate cancer 11 Poor overall functional performance based on the above-mentioned multiple comorbidities Plan: The patient was seen and evaluated by Dr. Rajput FNA of the mediastinal lymph node performed yesterday by IR, pathology pending Bone scan, computed tomography scan of the brain reviewed Medical and radiation oncology on the case Patient's overall prognosis remains quite guarded We will continue to follow and make further recommendations based on his cli nical status I, the cosigning physician, performed a history & physical examination of the patient. Lungs sounds are clear, managed. Maintaining good O2 saturations in the 90s on room air. I discussed the assessment and plan of care with my nurse practitioner, Lolly Doan. I attest to the above note as dictated by her.
[2020-04-15 17:07] LABS: Glucose,Whole Blood 170 mg/dL (75-99)
[2020-04-15] MEDS ORDERED: Potassium Replacement Protocol 1 EACH MISC MISCELLANE PRN (19:12)
[2020-04-15] MEDS ORDERED: Magnesium Replacement Protocol 1 EACH MISC MISCELLANE PRN (19:12)
--- NOTE | 2020-04-15 20:14 | PN ---
PROGRESS NOTE DATE OF SERVICE: 04/15/2020 This 80-year-old gentleman who was admitted with multiple metastatic lesions appearing enhancing with primary unknown, had prominent pulmonary nodules. The patient underwent biopsy by Interventional Radiology. The patient also had bilateral adrenal nodules also. Patient being closely monitored at this time. The most recent chest x-ray which was reviewed personally by me showed no acute pulmonary lesions and bone scan showed no significant metastatic lesions. The lymph node biopsy was done by CT guidance by interventional Radiology of the mediastinal adenopathy. Past medical history reviewed. REVIEW OF SYSTEMS: CARDIOVASCULAR SYSTEM: No angina or palpitations. RESPIRATIONS: As mentioned earlier. GI as mentioned earlier. NERVOUS SYSTEM: Mild diffuse weakness. CURRENT MEDICATIONS: Reviewed and include: [place], DuoNeb, Xanax, aspirin, dexamethasone. NovoLog, melatonin, Glucophage, Singulair, Narcan, Pravachol and Flomax. PHYSICAL EXAMINATION: Alert and oriented times three. Pulse 70. Blood pressure is 120/60. Respirations 17, temperature 98.1, pulse ox 98% on room air. HEENT is conjunctivae normal. NECK: No JVD. CARDIOVASCULAR: S1, S2 muffled. RESPIRATIONS: Breath sounds diminished in the bases. No rhonchi. No crackles. ABDOMEN: Soft. Nontender. LEGS are no edema. No swelling. LABS: Sodium 133 and magnesium 1.4. ASSESSMENT: 1. Multiple metastatic brain lesions with rim enhancing with possibly metastatic malignancy. 2. Status post mediastinal lymph node biopsy. 3. Bilateral adrenal nodules. 4. Chronic obstructive pulmonary disease. 5. Diabetes mellitus type 2. 6. Gastroesophageal reflux disease. 7. Hyperlipidemia. 8. Degenerative joint disease. 9. Hypomagnesemia. 10.History of prostate cancer. 11.History of protein calorie malnutrition. 12.Diabetes mellitus type 2. 13.Medical debility. RECOMMENDATIONS AND DISCUSSION: I recommend to continue current medications, management and symptomatic treatment. Otherwise I would recommend follow closely with Hematology/Oncology and as well as Pulmonary and Radiation Oncology also being consulted for brain METs. PT/OT evaluation. Otherwise, I would also recommend magnesium supplementation. Check lytes. Repeat labs. Overall prognosis guarded because of multiple complex medical issues and further recommendations to follow. MMODL / IJN: [id number] /
[2020-04-15 20:18] LABS: Glucose,Whole Blood 189 mg/dL (75-99)
[2020-04-15] MEDS: MELATONIN 3 MG TABLET PO SCH (20:55)
[2020-04-15] MEDS: SODIUM CHLORIDE 0.9% 1,000 ML IV SCH (20:56)
[2020-04-15] MEDS: PRAVASTATIN SODIUM 40 MG TAB PO SCH (20:59)
[2020-04-16] MEDS: ALPRAZolam 0.25 MG TAB PO PRN ×2 (04:26→17:54)
[2020-04-16] MEDS: HYDROcodone/APAP 10-325MG 1 EACH TAB PO PRN ×3 (04:27→20:41)
[2020-04-16] MEDS: DEXAMETHASONE SOD PHOSPHATE 4 MG/ML 1 ML VIAL IV SCH ×3 (05:52→20:43)
[2020-04-16 07:08] LABS: Basophils % (A) 0 %; Eosinophils % (A) 0 %; HCT 43.6 % (39.0-53.0); HGB 14.2 gm/dL (13.0-17.5); Lymphocytes # (A) 0.9 k/uL (1.0-4.8); Lymphocytes % (A) 9 %; MCH 31.7 pg (25.0-35.0); MCHC 32.7 g/dL (31.0-37.0); Mean Platelet Volume 7.4; Monocytes # (A) 0.5 k/uL (0-1.0); Monocytes % (A) 4 %; Neutrophils # (A) 9.1 k/uL (1.3-7.7); Neutrophils % (A) 86 %; Platelet Count 194 k/uL (150-450); RBC 4.49 m/uL (4.30-5.90); RDW 13.6 % (11.5-15.5); WBC 10.5 k/uL (3.8-10.6)
[2020-04-16 07:17] LABS: Glucose,Whole Blood 137 mg/dL (75-99)
[2020-04-16] MEDS: IPRATROPIUM-ALBUTEROL 3 ML NEB INHALATION SCH ×4 (07:40→20:15)
[2020-04-16] MEDS: INSULIN ASPART (NovoLOG) 100 UNIT/ML VIAL SQ SCH ×4 (07:43→20:35)
[2020-04-16 09:37] LABS: African American GFR (CKD) 94.5 (60.0-200.0); Anion Gap 7.5 mmol/L (4.00-12.00); BUN/Creat Ratio 18.89 Ratio (12.00-20.00); Calcium 9.1 mg/dL (8.7-10.3); Carbon Dioxide 25.5 mmol/L (21.6-31.8); Magnesium 1.4 mg/dL (1.5-2.4); Non-African American GFR(CKD) 81.5 (60.0-200.0); Potassium 4.6 mmol/L (3.5-5.5)
[2020-04-16] MEDS: metFORMIN 500 MG TAB PO SCH ×2 (10:00→17:04)
[2020-04-16] MEDS: MONTELUKAST 10 MG TAB PO SCH (10:00)
[2020-04-16] MEDS: PANTOPRAZOLE 40 MG TABLET PO SCH (10:00)
[2020-04-16] MEDS: ASPIRIN 81 MG PO SCH (10:00)
[2020-04-16] MEDS: TAMSULOSIN 0.4 MG CAP.ER.24H PO SCH ×2 (10:00→20:43)
[2020-04-16 11:24] LABS: Glucose,Whole Blood 157 mg/dL (75-99)
--- NOTE | 2020-04-16 12:45 | P.PN ---
Subjective Progress Note Date: 04/16/20 Principal diagnosis: Otherwise weakness with frequent falls secondary to metastatic disease This is a pleasant 80-year-old gentleman who follows Dr. Pastrana as his primary care provider. He has a history of diabetes mellitus, type II, gastric ulcers, hyperlipidemia, gastric esophageal reflux disease, prostate cancer. He has has a history of chronic obstructive pulmonary disease and chronic and ongoing tobacco dependence. He follows with Dr. Rajput in our office. He was last seen in April 2019. At that time he was noted to have a left lower lobe nodule with slight uptake in the nodule in the left infrahilar lymph node not significantly positive for malignancy but suspicious. The patient was deemed a poor candidate for any surgical intervention at that time and the node was too small to biopsy. He presented to the emergency room yesterday with increasing weakness and frequent falls. CAT scan of the chest abdomen and pelvis revealed a enlarging anterior mediastinal lymph node at 2.5 cm versus 6 mm previously. There is a 1.0 cm subcarinal lymph node. New bilateral adrenal nodules measuring up to 1.8 cm. These are new as well. There is a left basilar pulmonary nodule remains stable from January 2019 at 1.1 cm. Computed tomography scan of the brain revealed numerous intra-axial lesions consistent with metastatic prostatic disease. The patient was seen today in consultation. He is currently sitting up in a chair at the bedside. Awake and alert in no acute distress. He is quite disheveled and weak. He is maintaining O2 saturations in the mid 90s on room air. He is afebrile. Hemodynamically stable. He currently denies any worsening shortness of breath, cough or congestion. He denies hemoptysis. He has been losing weight. He has been initiated on Decadron. Bone scan is pending. The patient is seen today 04/15/2020 in follow-up on the oncology unit. He is currently sitting up at the bedside. Awake and alert in no acute distress. Currently maintaining good O2 saturations in the upper 90s on room air. He's afebrile. Hemodynamically stable. Blood glucose 117. He did undergo mediastinal lymph node biopsy yesterday. Pathology pending. Follow-up chest x- ray reveals no evidence of pneumothorax. No acute pulmonary process. Bone scan revealed large radiotracer accumulation of the right shoulder suspect metastasis. Radiation oncology and medical oncology are on the case. Patient is seen today 04/16/2020 in follow-up on the oncology unit. He is sitting in bed. Awake and alert in no acute distress. He denies any worsening shortness of breath, cough or congestion. He is maintaining good O2 saturations in the mid 90s on room air. He's been afebrile. Hemodynamically stable. White count 10.5. Hemoglobin 14.2. Sodium 138. Potassium 4.6. Creatinine 0.9. Remains on IV Decadron. Continued on bronchodilators. Pathology report still pending. Objective - Vital Signs Vital signs: Vital Signs Temp 97.9 F 04/16/20 11:49 Pulse 69 04/16/20 11:49 Resp 17 04/16/20 11:49 BP 144/64 04/16/20 11:49 Pulse Ox 97 04/16/20 11:49 Intake & Output 04/15/20 04/16/20 04/16/20 18:59 06:59 18:59 Intake Total 360 240 Output Total 1250 Balance -890 240 Intake: Oral 360 240 Output: Urine 1250 Other: Voiding Method Urinal Urinal Urinal # Voids 3 2 3 - Exam GENERAL EXAM: Alert, frail, cachectic 80-year-old gentleman, on room air, comfortable in no apparent distress. HEAD: Normocephalic. EYES: Normal reaction of pupils, equal size. NOSE: Clear with pink turbinates. THROAT: No erythema or exudates. NECK: No masses, no JVD. CHEST: No chest wall deformity. LUNGS: Equal air entry with no crackles, wheeze, rhonchi or dullness. CVS: S1 and S2 normal with no audible murmur, regular rhythm. ABDOMEN: No hepatosplenomegaly, normal bowel sounds, no guarding or rigidity. SPINE: No scoliosis or deformity SKIN: No rashes CENTRAL NERVOUS SYSTEM: No focal deficits, tone is normal in all 4 extremities. EXTREMITIES: There is no peripheral edema. No clubbing, no cyanosis. Peripheral pulses are intact. - Labs CBC & Chem 7: 04/16/20 06:43 04/16/20 06:43 Labs: Abnormal Lab Results - Last 24 Hours (Table) 04/15/20 04/15/20 04/16/20 Range/Units 17:06 20:16 06:43 Neutrophils # 9.1 H (1.3-7.7) k/uL Lymphocytes # 0.9 L (1.0-4.8) k/uL Glucose (70-110) mg/dL POC Glucose (mg/dL) 170 H 189 H (75-99) mg/dL Magnesium (1.5-2.4) mg/dL 04/16/20 04/16/20 04/16/20 Range/Units 06:43 07:16 11:23 Neutrophils # (1.3-7.7) k/uL Lymphocytes # (1.0-4.8) k/uL Glucose 120 H (70-110) mg/dL POC Glucose (mg/dL) 137 H 157 H (75-99) mg/dL Magnesium 1.4 L (1.5-2.4) mg/dL Assessment and Plan Assessment: 1 Generalized weakness and frequent falls secondary to metastatic disease. CAT scan of the brain does reveal numerous intra-axial lesions consistent with metastatic disease. Bone scan reveals radiotracer uptake in the right shoulder suspicious for metastases. 2 Enlarging anterior mediastinal lymph node now measuring 2.5 cm versus 6 mm in January 2019. Suggestive of metastatic disease. Stable irregular 1.1 cm left basilar pulmonary nodule. Stable 1.6 cm left infrahilar soft tissue nodule/lymph node along the esophagus. Status post FNA of the mediastinal lymph node on 04/14/2020 by IR. Pathology pending. 3 New bilateral adrenal nodules measuring up to 1.8 cm. 4 Chronic and ongoing tobacco dependence 5 Chronic obstructive pulmonary disease 6 Diabetes mellitus, type II 7 GERD 8 Hyperlipidemia 9 Primary osteoarthritis 10 History of prostate cancer 11 Poor overall functional performance based on the above-mentioned multiple comorbidities Plan: The patient was seen and evaluated by Dr. Regulo Mcneal from the pulmonary standpoint. Pathology pending. Patient's overall prognosis remains quite guarded We will continue to follow and make further recommendations based on his clinical status I, the cosigning physician, performed a history & physical examination of the patient. Lungs sounds are clear, managed. Maintaining good O2 saturations in the 90s on room air. I discussed the assessment and plan of care with my nurse practitioner, Lolly Doan. I attest to the above note as dictated by her.
[2020-04-16 16:58] LABS: Glucose,Whole Blood 106 mg/dL (75-99)
[2020-04-16] MEDS: MELATONIN 3 MG TABLET PO SCH (20:41)
[2020-04-16] MEDS: PRAVASTATIN SODIUM 40 MG TAB PO SCH (20:41)
[2020-04-16] MEDS: NICOTINE 14MG/24HR PATCH TRANSDERM SCH (20:43)
[2020-04-16 20:55] LABS: Glucose,Whole Blood 110 mg/dL (75-99)
[2020-04-16] MEDS: SODIUM CHLORIDE 0.9% 1,000 ML IV SCH (22:31)
[2020-04-17] MEDS: ALPRAZolam 0.25 MG TAB PO PRN ×2 (00:45→16:03)
--- NOTE | 2020-04-17 02:02 | PN ---
PROGRESS NOTE DATE OF SERVICE: 04/16/2020 This 80-year-old gentleman who was admitted with multiple metastatic brain lesions continued to be confused. Patient also had mediastinal lymph node biopsy. The final report is pending at this time. Multiple consults is following the patient closely. PT, OT is also evaluating the patient. The patient had an enlarging anterior mediastinal lymph nodes. PAST MEDICAL HISTORY: Reviewed. REVIEW OF SYSTEMS: Could not be taken, the patient is confused. CURRENT MEDICATIONS: Current medications are reviewed and include [place] 10 mg, DuoNeb q.i.d. and p.r.n., Xanax, aspirin, Decadron, NovoLog, metformin, Singulair. Doses are reviewed. PHYSICAL EXAMINATION: Patient is conscious, confused. Pulse 65, blood pressure 144/64, respirations 17, temperature 97.9, pulse ox 97% on room air. HEENT: Conjunctivae normal. NECK: No jugular venous distention. CARDIOVASCULAR: S1, S2 muffled. RESPIRATORY: Breath sounds diminished at the bases. Scattered rhonchi and crackles. ABDOMEN: Soft, nontender. LEGS: No edema, no swelling. NERVOUS SYSTEM: No focal deficits. LABS: CBC within normal limits. Glucose 120. ASSESSMENT: 1. Multiple metastatic brain lesions with and possibly metastatic malignancy. 2. Status post anterior mediastinal lymph node biopsy. 3. Change in mental status, metabolic toxic encephalopathy. 4. Gait dysfunction. 5. Bilateral adrenal nodules. 6. Chronic obstructive pulmonary disease. 7. Diabetes mellitus type 2. 8. Gastroesophageal reflux disease. 9. Hyperlipidemia. 10.Degenerative joint disease. 11.Hypomagnesemia. 12.History of prostate cancer. 13.History of protein calorie malnutrition. 14.Medical debility. RECOMMENDATIONS AND DISCUSSION: I recommend to continue current medications, continue symptomatic treatment. Otherwise, await biopsy report. Otherwise, we will have replacement magnesium. PT, OT evaluation, possible ECF rehab. Await biopsy report. Closely follow with Hematology/Oncology. Guarded prognosis. Further recommendations to follow. MMODL / IJN: [id number] / MTDD
[2020-04-17] MEDS: HYDROcodone/APAP 10-325MG 1 EACH TAB PO PRN ×3 (03:38→16:03)
[2020-04-17] MEDS: DEXAMETHASONE SOD PHOSPHATE 4 MG/ML 1 ML VIAL IV SCH ×3 (05:52→20:53)
[2020-04-17] MEDS: MAGNESIUM SULFATE-D5W PMX 1 GM in DEXTROSE/WATER 1 100ML.BAG IVPB SCH ×3 (06:04→11:05)
[2020-04-17 06:45] LABS: Basophils % (A) 0 %; Eosinophils # (A) 0.1 k/uL (0-0.7); Eosinophils % (A) 1 %; HGB 13.5 gm/dL (13.0-17.5); Lymphocytes % (A) 10 %; MCH 32.2 pg (25.0-35.0); MCHC 33.9 g/dL (31.0-37.0); Mean Platelet Volume 7.6; Monocytes # (A) 0.4 k/uL (0-1.0); Monocytes % (A) 4 %; Neutrophils # (A) 8.2 k/uL (1.3-7.7); Neutrophils % (A) 85 %; Platelet Count 173 k/uL (150-450); RBC 4.21 m/uL (4.30-5.90); RDW 13.6 % (11.5-15.5); WBC 9.6 k/uL (3.8-10.6)
[2020-04-17 07:37] LABS: Glucose,Whole Blood 127 mg/dL (75-99)
[2020-04-17] MEDS: IPRATROPIUM-ALBUTEROL 3 ML NEB INHALATION SCH ×4 (07:40→20:12)
[2020-04-17] MEDS: INSULIN ASPART (NovoLOG) 100 UNIT/ML VIAL SQ SCH ×4 (07:42→20:52)
--- NOTE | 2020-04-17 08:19 | P.CONS ---
History of Present Illness - Reason for Consult Consult date: 04/14/20 brain metastases Requesting physician: Sebastián Lucio - Chief Complaint confusion, ataxia - History of Present Illness The patient is a 72-year-old male with a long time smoking history who was previously treated for a high risk ([place] 9) adenocarcinoma of the prostate with androgen deprivation therapy and radiation in October 2017. He was subsequently found to have a 1 cm nodule in the left lower lung, which appear to be stable on serial imaging. He has not followed up in over one year, and unfortunately now presents with evidence of metastatic disease in the brain suspicion for lung primary. According to the patient and his daughter, he has developed significant diffi culty with balance over the past month. He never required any type of assistance with ambulation prior, but has recently been having falls even when using a cane or a walker. The patient has not complained of headaches, but has noted some minimal nausea. He had 1 fall when walking his dog 1 week ago, and had a second fall in the home prior to admission. He was found on April [address] scan of the brain to have numerous ring-enhancing lesions suspicious for metastasis. A CT scan of the chest, abdomen and pelvis on April 13 showed a new 2.5 cm anterior mediastinal lymph node, with relatively stable mildly enlarged adenopathy in the subcarinal, left infrahilar region and left lower lung. He did have new evidence of bilateral adrenal nodularity. A bone scan was performed on April 14 which showed some abnormal uptake in the right shoulder. This however was present previously several years ago during his workup for prostate cancer, and likely represents degenerative disease. Since being hospitalized and initiated on steroids, the patient unfortunately still seems somewhat confused. He notes that he has been trying to leave the hospital. Repeat PSA testing reveals still undetectable PSA. Review of Systems Constitutional: Denies chills, Denies fever Eyes: denies blurred vision Ears: bilateral: decreased hearing Ears, nose, mouth and throat: Denies headache Cardiovascular: Reports dyspnea on exertion, Denies chest pain Respiratory: Reports cough Gastrointestinal: Denies abdominal pain Genitourinary: Denies flank pain Neurological: Reports ataxia, Reports balance difficulties, Reports change in mentation, Reports confusion, Reports gait dysfunction, Reports lack of coordination, Denies aphasia, Denies change in speech, Denies convulsions, Denies double vision, Denies headaches, Denies loss of vision, Denies numbness, Denies paralysis, Denies paresthesias, Denies seizures Psychiatric: Reports confusion, Denies anxiety, Denies depression Past Medical History Past Medical History: Cancer, COPD, Diabetes Mellitus, GERD/Reflux, Hyperlipidemia, Osteoarthritis (OA), Prostate Disorder Additional Past Medical History / Comment(s): Degenerative arthritis affecting neck, back, legs and arms, NIDDM type II, 1989 stomach ulcer with upper GI bleed and transfusions, prostate cancer History of Any Multi-Drug Resistant Organisms: None Reported Past Surgical History: Cholecystectomy Additional Past Surgical History / Comment(s): salivary gland removed, colon oscopies with benign polyps, EGD with ulcer repair, bilateral CATARACTS w/ removal and lens implants. Past Anesthesia/Blood Transfusion Reactions: No Reported Reaction Additional Past Anesthesia/Blood Transfusion Reaction / Comm: HX OF BLOOD TRANSFUSION (1989)- NO PROBLEM. Past Psychological History: Depression Additional Psychological History / Comment(s): pt does not drive-daughter or son takes patient to appointment. Smoking Status: Current every day smoker Past Alcohol Use History: None Reported Additional Past Alcohol Use History / Comment(s): Pt smoked from [id number] then quit. He resumed smoking in 2009-november 2017 1ppd. Past Drug Use History: Marijuana - Past Family History Sister(s) Family Medical History: Cancer Additional Family Medical History / Comment(s): BREAST & BONE CA Mother Family Medical History: No Reported History Additional Family Medical History / Comment(s): Mother was pretty healthy-she at age 94 yrs. Medications and Allergies Home Medications Medication Instructions Recorded Confirmed Type Aspirin 81 mg PO DAILY 08/24/15 04/12/20 History HYDROcodone/APAP 10-325MG [[place] 2 tab PO Q12H 08/24/15 04/12/20 History 10-325] Montelukast [Singulair] 10 mg PO DAILY 08/24/15 04/12/20 History Omeprazole 40 mg PO DAILY 08/24/15 04/12/20 History Pravastatin Sodium [Pravachol] 40 mg PO HS 08/24/15 04/12/20 History metFORMIN HCL 1,000 mg PO DAILY 08/24/15 04/12/20 History Tamsulosin [Flomax] 0.4 mg PO BID 05/05/18 04/12/20 History Ipratropium-Albuterol Nebulize 3 ml INHALATION RT-QID PRN 04/12/20 04/12/20 History [Duoneb 0.5 mg-3 mg/3 ml Soln] Allergies Allergy/AdvReac Type Severity Reaction Status Date / Time No Known Allergies Allergy Verified 04/12/20 20:32 Physical Exam Vitals: Vital Signs Temp Pulse Pulse Pulse Resp BP Pulse Ox 04/17/20 07:52 68 04/17/20 07:40 68 04/17/20 04:15 97.4 F L 73 20 110/72 97 04/16/20 20:50 97.3 F L 71 16 131/65 95 04/16/20 20:29 70 04/16/20 20:15 68 04/16/20 16:17 66 04/16/20 16:06 64 04/16/20 16:00 65 69 17 04/16/20 11:49 97.9 F 69 17 144/64 97 04/16/20 11:14 64 04/16/20 11:06 66 Intake and Output 04/16/20 04/17/20 04/17/20 22:59 06:59 14:59 Output Total 600 Balance -600 Output: Urine 600 Other: Voiding Method Urinal Urinal # Voids 1 1 - Constitutional General appearance: no acute distress - EENT Eyes: EOMI, PERRLA ENT: hard of hearing - Neck Neck: no lymphadenopathy - Respiratory Respiratory: bilateral: diminished - Cardiovascular Rhythm: regular - Gastrointestinal General gastrointestinal: no distended, no tenderness - Integumentary Integumentary: no calor, no cellulitis - Neurologic Neurologic: CNII-XII intact - Musculoskeletal Musculoskeletal: strength equal bilaterally - Psychiatric Psychiatric: no A&O x's 3, appropriate affect, no intact judgment & insight Results CBC & Chem 7: 04/17/20 06:23 04/16/20 06:43 Labs: Abnormal Lab Results - Last 24 Hours (Table) 04/16/20 04/16/20 04/16/20 Range/Units 06:43 11:23 16:57 RBC (4.30-5.90) m/uL Neutrophils # (1.3-7.7) k/uL Glucose 120 H (70-110) mg/dL POC Glucose (mg/dL) 157 H 106 H (75-99) mg/dL Magnesium 1.4 L (1.5-2.4) mg/dL 04/16/20 04/17/20 04/17/20 Range/Units 20:35 06:23 07:34 RBC 4.21 L (4.30-5.90) m/uL Neutrophils # 8.2 H (1.3-7.7) k/uL Glucose (70-110) mg/dL POC Glucose (mg/dL) 110 H 127 H (75-99) mg/dL Magnesium (1.5-2.4) mg/dL CT scan - chest: report reviewed, image reviewed CT Scan - head: report reviewed, image reviewed CT scan - pelvis: report reviewed, image reviewed Assessment and Plan Assessment: The patient is a 72-year-old male with a long time smoking history who was previously treated for a high risk ([place] 9) adenocarcinoma of the prostate with androgen deprivation therapy and radiation in October 2017. He was subsequently found to have a 1 cm nodule in the left lower lung, which appear to be stable on serial imaging. He has not followed up in over one year, and unfortunately now presents with evidence of metastatic disease in the brain suspicion for lung primary. Plan: 1. Brain metastases: Highly unlikely this relates to the patient's previous prostate cancer, especially considering the PSA is undetectable. In this patient with a significant smoking history, this is more likely related to a l lex cancer, possibly non-small cell considering relatively low volume of thoracic disease. The patient's metastases appear too numerous on CT for radiosurgery, and therefore if he opted for treatment whole brain radiation would be recommended. We are waiting for biopsy results to return prior to g iving definitive recommendations. Also, the patient still appears to be mildly confused, and we will see if this improves with dexamethasone. 2. Likely NSCLC: As detailed above, most likely the patient has a new diagnosis of a non-small cell lung cancer. Medical oncology is following, and we are awaiting final biopsy results. I did speak with the patient's daughter Susi, and they are also waiting further information prior to making definitive decisions. She states that her father has been in good mental clarity up until this episode and that he previously made all of his decisions. Options of treatment and hospice were discussed. Time with Patient: Greater than 30
[2020-04-17] MEDS: PANTOPRAZOLE 40 MG TABLET PO SCH (09:35)
[2020-04-17] MEDS: TAMSULOSIN 0.4 MG CAP.ER.24H PO SCH ×2 (09:35→20:52)
[2020-04-17] MEDS: ASPIRIN 81 MG PO SCH (09:35)
[2020-04-17] MEDS: metFORMIN 500 MG TAB PO SCH ×2 (09:35→18:58)
[2020-04-17] MEDS: NICOTINE 14MG/24HR PATCH TRANSDERM SCH (09:35)
[2020-04-17] MEDS: MONTELUKAST 10 MG TAB PO SCH (09:35)
[2020-04-17 11:01] LABS: African American GFR (CKD) 83.2 (60.0-200.0); Anion Gap 7.1 mmol/L (4.00-12.00); Calcium 8.8 mg/dL (8.7-10.3); Carbon Dioxide 23.9 mmol/L (21.6-31.8); Non-African American GFR(CKD) 71.8 (60.0-200.0); Potassium 4.4 mmol/L (3.5-5.5)
[2020-04-17 12:20] LABS: Glucose,Whole Blood 140 mg/dL (75-99)
--- NOTE | 2020-04-17 15:04 | P.PN ---
Subjective Progress Note Date: 04/17/20 Principal diagnosis: Frequent falls, metastatic brain disease, mediastinal adenopathy, rule out metastatic brain cancer This is a pleasant 80-year-old gentleman who follows Dr. Pastrana as his primary care provider. He has a history of diabetes mellitus, type II, gastric ulcers, hyperlipidemia, gastric esophageal reflux disease, prostate cancer. He has has a history of chronic obstructive pulmonary disease and chronic and ongoing tobacco dependence. He follows with Dr. Rajput in our office. He was last seen in April 2019. At that time he was noted to have a left lower lobe nodule with slight uptake in the nodule in the left infrahilar lymph node not significantly positive for malignancy but suspicious. The patient was deemed a poor candidate for any surgical intervention at that time and the node was too small to biopsy. He presented to the emergency room yesterday with increasing weakness and frequent falls. CAT scan of the chest abdomen and pelvis revealed a enlarging anterior mediastinal lymph node at 2.5 cm versus 6 mm previously. There is a 1.0 cm subcarinal lymph node. New bilateral adrenal nodules measuring up to 1.8 cm. These are new as well. There is a left basilar pulmonary nodule remains stable from January 2019 at 1.1 cm. Computed tomography scan of the brain revealed numerous intra-axial lesions consistent with metastatic prostatic disease. The patient was seen today in consultation. He is currently sitting up in a chair at the bedside. Awake and alert in no acute distress. He is quite disheveled and weak. He is maintaining O2 saturations in the mid 90s on room air. He is afebrile. Hemodynamically stable. He currently denies any worsening shortness of breath, cough or congestion. He denies hemoptysis. He has been losing weight. He has been initiated on Decadron. Bone scan is pending. The patient is seen today 04/15/2020 in follow-up on the oncology unit. He is currently sitting up at the bedside. Awake and alert in no acute distress. Currently maintaining good O2 saturations in the upper 90s on room air. He's afebrile. Hemodynamically stable. Blood glucose 117. He did undergo mediastinal lymph node biopsy yesterday. Pathology pending. Follow-up chest x- ray reveals no evidence of pneumothorax. No acute pulmonary process. Bone scan revealed large radiotracer accumulation of the right shoulder suspect metastasis. Radiation oncology and medical oncology are on the case. Patient is seen today 04/16/2020 in follow-up on the oncology unit. He is sitting in bed. Awake and alert in no acute distress. He denies any worsening shortness of breath, cough or congestion. He is maintaining good O2 saturations in the mid 90s on room air. He's been afebrile. Hemodynamically stable. White count 10.5. Hemoglobin 14.2. Sodium 138. Potassium 4.6. Creatinine 0.9. Remains on IV Decadron. Continued on bronchodilators. Pathology report still pending. On 04/17/2020 patient seen in follow-up on general medical oncology floor he is awake and alert, sitting up in the recliner, appears to be in no acute distress, he states his gait is a little bit steadier today, he is awake and and oriented 3, no altered mentation, he is on room air, his breathing comfortably. Lung sounds are clear, no rhonchi or wheezing, no complaints of hemoptysis or chest pain. His pathology report is still not back. His vital signs have been stable, he remains on IV Decadron, bronchodilators, his had no fever or chills, he was seen in consultation by radiation oncology and they're also awaiting final biopsy results. Objective - Vital Signs Vital signs: Vital Signs Temp 97.5 F L 04/17/20 13:24 Pulse 81 04/17/20 13:24 Resp 18 04/17/20 13:24 BP 127/68 04/17/20 13:24 Pulse Ox 96 04/17/20 13:24 Intake & Output 04/16/20 04/17/20 04/17/20 18:59 06:59 18:59 Intake Total 240 240 Output Total 600 Balance -360 240 Intake: Oral 240 240 Output: Urine 600 Other: Voiding Method Urinal Urinal # Voids 3 1 300 - Exam GENERAL EXAM: Alert, very pleasant, 80-year-old white male, on room air, with a pulse ox 96% comfortable in no apparent distress. HEAD: Normocephalic/atraumatic. EYES: Normal reaction of pupils, equal size. Conjunctiva pink, sclera white. NOSE: Clear with pink turbinates. THROAT: No erythema or exudates. NECK: No masses, no JVD, no thyroid enlargement, no adenopathy. CHEST: No chest wall deformity. Symmetrical expansion. LUNGS: Equal air entry with no crackles, wheeze, rhonchi or dullness. CVS: Regular rate and rhythm, normal S1 and S2, no gallops, no murmurs, no rubs ABDOMEN: Soft, nontender. No hepatosplenomegaly, normal bowel sounds, no guarding or rigidity. EXTREMITIES: No clubbing, no edema, no cyanosis, 2+ pulses and upper and lower extremities. MUSCULOSKELETAL: Muscle strength and tone normal. SPINE: No scoliosis or deformity SKIN: No rashes CENTRAL NERVOUS SYSTEM: Alert and oriented -3. No focal deficits, tone is normal in all 4 extremities. PSYCHIATRIC: Alert and oriented -3. Appropriate affect. Intact judgment and insight. - Labs CBC & Chem 7: 04/17/20 06:23 04/17/20 06:23 Labs: Abnormal Lab Results - Last 24 Hours (Table) 04/16/20 04/16/20 04/17/20 Range/Units 16:57 20:35 06:23 RBC 4.21 L (4.30-5.90) m/uL Neutrophils # 8.2 H (1.3-7.7) k/uL Sodium (135-145) mmol/L Glucose (70-110) mg/dL POC Glucose (mg/dL) 106 H 110 H (75-99) mg/dL 04/17/20 04/17/20 04/17/20 Range/Units 06:23 07:34 12:04 RBC (4.30-5.90) m/uL Neutrophils # (1.3-7.7) k/uL Sodium 132 L (135-145) mmol/L Glucose 123 H (70-110) mg/dL POC Glucose (mg/dL) 127 H 140 H (75-99) mg/dL Assessment and Plan Plan: Assessment: 1 Generalized weakness and frequent falls secondary to metastatic disease. CAT scan of the brain does reveal numerous intra-axial lesions consistent with metastatic disease. Bone scan reveals radiotracer uptake in the right shoulder suspicious for metastases. 2 Enlarging anterior mediastinal lymph node now measuring 2.5 cm versus 6 mm in January 2019. Suggestive of metastatic disease. Stable irregular 1.1 cm left basilar pulmonary nodule. Stable 1.6 cm left infrahilar soft tissue nodule/lymph node along the esophagus. Status post FNA of the mediastinal lymph node on 04/14/2020 by IR. Pathology pending. 3 New bilateral adrenal nodules measuring up to 1.8 cm. 4 Chronic and ongoing tobacco dependence 5 Chronic obstructive pulmonary disease 6 Diabetes mellitus, type II 7 GERD 8 Hyperlipidemia 9 Primary osteoarthritis 10 History of prostate cancer 11 Poor overall functional performance based on the above-mentioned multiple comorbidities Plan: Awaiting final biopsy results, sensitive been stable, no worsening dyspnea, maintaining safety precautions, his had no acute events overnight, continue bronchodilators and steroids. We'll continue to follow I performed a history & physical examination of the patient and discussed their management with my nurse practitioner, Violetta Anne. I reviewed the nurse practitioner's note and agree with the documented findings and plan of care. Lung sounds are positive for diminished breath sounds at the bases. The findings and the impression was discussed with the patient. I attest to the documentation by the nurse practitioner. Time with Patient: Less than 30
[2020-04-17 17:08] LABS: Glucose,Whole Blood 119 mg/dL (75-99)
--- NOTE | 2020-04-17 17:15 | PN ---
PROGRESS NOTE DATE OF SERVICE: 04/17/2020 This 80-year-old gentleman who was admitted with multiple metastatic brain lesions had an anterior mediastinal biopsy. Biopsy report is pending at this time. Otherwise, multiple consultants are following the patient closely, including Radiation Oncology, Dr. Parker, for possible radiation therapy. Patient continues to be confused, continues to be weak. Patient is being closely monitored. Sodium is 132. PT/OT evaluated the patient. insulation manager is following the patient regarding the disposition as well. The patient is found to be extremely weak, with poor social support. The patient might require an ECF. Past medical history reviewed. Review of systems could not be taken; the patient is confused. CURRENT MEDICATIONS: Reviewed. They include: [place] 10 mg, DuoNeb, Xanax, aspirin, dexamethasone, NovoLog, melatonin, Glucophage, replacement protocol, Protonix. Doses are reviewed. PHYSICAL EXAMINATION: Patient is alert and oriented x1. Pulse 81, blood pressure 127/68, respiration 18, temperature 97.4, pulse ox 96% on room air. HEENT: Conjunctivae normal. NECK: No jugular venous distention. CARDIOVASCULAR SYSTEM: S1, S2 muffled. RESPIRATORY SYSTEM: Breath sounds diminished at the bases. A few scattered rhonchi and crackles. ABDOMEN: Soft, non-tender. LEGS: No edema. No swelling. NERVOUS SYSTEM: No focal deficit. LABS: CBC within normal limits. Sodium 132. ASSESSMENT: 1. Multiple metastatic brain lesions with possible metastatic malignancy. 2. Status post anterior mediastinal lymph node biopsy. 3. Change in mental status, acute toxic encephalopathy. 4. Gait dysfunction. 5. History of bilateral adrenal nodules. 6. Chronic obstructive pulmonary disease. 7. Diabetes mellitus, type 2. 8. Gastroesophageal reflux disease. 9. Gait dysfunction. 10.Hyperlipidemia. 11.Degenerative joint disease. 12.Hypomagnesemia. 13.History of prostate cancer. 14.History of protein-calorie malnutrition, mild. 15.FULL CODE. RECOMMENDATIONS AND DISCUSSION: In this 80-year-old gentleman who presented with multiple complex medical issues, we will monitor the patient closely, continue the current medications, continue symptomatic treatment. Will wait for the biopsy report. Monitor blood sugars closely. Continue the current medications. PT/OT evaluation. As mentioned earlier, explore the possibility of ECF. Prognosis guarded. Further recommendations to follow. MMODL / IJN: [id number] /
--- NOTE | 2020-04-17 19:39 | P.PN ---
Objective - Vital Signs Vital signs: Vital Signs Temp 97.5 F L 04/17/20 13:24 Pulse 68 04/17/20 16:08 Resp 18 04/17/20 13:24 BP 127/68 04/17/20 13:24 Pulse Ox 96 04/17/20 13:24 Intake & Output 04/17/20 04/17/20 04/18/20 06:59 18:59 06:59 Intake Total 240 Balance 240 Intake: Oral 240 Other: Voiding Method Urinal # Voids 1 300 - Exam - Constitutional General appearance: no acute distress - EENT Eyes: EOMI, PERRLA ENT: hearing grossly normal, normal oropharynx - Neck Neck: no lymphadenopathy Thyroid: bilateral: normal size - Respiratory Respiratory: bilateral: CTA - Cardiovascular Rhythm: regular Heart sounds: normal: S1, S2 - Gastrointestinal General gastrointestinal: normal bowel sounds, soft - Integumentary Integumentary: normal - Neurologic Neurologic: CNII-XII intact - Musculoskeletal Musculoskeletal: generalized weakness, strength equal bilaterally - Psychiatric Psychiatric: A&O x's 3, appropriate affect - Labs CBC & Chem 7: 04/17/20 06:23 04/17/20 06:23 Labs: Abnormal Lab Results - Last 24 Hours (Table) 04/16/20 04/17/20 04/17/20 Range/Units 20:35 06:23 06:23 RBC 4.21 L (4.30-5.90) m/uL Neutrophils # 8.2 H (1.3-7.7) k/uL Sodium 132 L (135-145) mmol/L Glucose 123 H (70-110) mg/dL POC Glucose (mg/dL) 110 H (75-99) mg/dL 04/17/20 04/17/20 04/17/20 Range/Units 07:34 12:04 17:06 RBC (4.30-5.90) m/uL Neutrophils # (1.3-7.7) k/uL Sodium (135-145) mmol/L Glucose (70-110) mg/dL POC Glucose (mg/dL) 127 H 140 H 119 H (75-99) mg/dL Assessment and Plan Plan: Brain lesion Narrative/Plan: The patient is being seen because of diagnosis of multiple brain lesions highly suggestive of metastasis. - Focal weakness minimal - CT of the chest abdomen and pelvis ordered and results reviewed with patient . - IV steroids to reduce vasogenic edema in the brain Reviewed brain MRI - consult radiation oncology Current Visit: Yes Status: Acute Code(s): G93.9 - DISORDER OF BRAIN, UNSPECIFIED SNOMED Code(s): 533440023 (2) Ataxia Narrative/Plan: - Presumed to be due to brain metastasis. COnfirmed MRI - The patient does not have other focal deficits. - Monitor on IV steroids. Add PPI Current Visit: Yes Status: Acute Code(s): R27.0 - ATAXIA, UNSPECIFIED SNOMED Code(s): 53383620 Plan: Unfortunetly he has not been able to adequatley start treatment for underlying cancer, Dr. Lucio had a long discussion today related to goals of care and timeframes for improvement to be able to still resonably treat with adequate response. Patient stated understanding. defer to the admitting service nd other consultants for management of his other medical problems Physician Attest: I have completed the full history and impression and plan, agree with above dictated as a scribe.
[2020-04-17 19:59] LABS: Glucose,Whole Blood 171 mg/dL (75-99)
[2020-04-17] MEDS: MELATONIN 3 MG TABLET PO SCH (20:52)
[2020-04-17] MEDS: PRAVASTATIN SODIUM 40 MG TAB PO SCH (20:52)
[2020-04-18] MEDS: SODIUM CHLORIDE 0.9% 1,000 ML IV SCH ×2 (00:11→23:32)
[2020-04-18] MEDS: ALPRAZolam 0.25 MG TAB PO PRN ×2 (00:14→17:36)
[2020-04-18] MEDS: HYDROcodone/APAP 10-325MG 1 EACH TAB PO PRN ×3 (00:17→17:36)
[2020-04-18] MEDS: DEXAMETHASONE SOD PHOSPHATE 4 MG/ML 1 ML VIAL IV SCH ×3 (05:52→21:29)
[2020-04-18 06:17] LABS: Basophils % (A) 0 %; Eosinophils % (A) 0 %; HCT 45.4 % (39.0-53.0); HGB 14.8 gm/dL (13.0-17.5); Lymphocytes # (A) 0.9 k/uL (1.0-4.8); Lymphocytes % (A) 8 %; MCH 31.3 pg (25.0-35.0); MCHC 32.6 g/dL (31.0-37.0); MCV 95.9 fL (80.0-100.0); Mean Platelet Volume 7.5; Monocytes # (A) 0.5 k/uL (0-1.0); Monocytes % (A) 4 %; Neutrophils # (A) 10.3 k/uL (1.3-7.7); Neutrophils % (A) 87 %; Platelet Count 207 k/uL (150-450); RBC 4.73 m/uL (4.30-5.90); RDW 13.6 % (11.5-15.5); WBC 11.8 k/uL (3.8-10.6)
[2020-04-18 07:23] LABS: Glucose,Whole Blood 125 mg/dL (75-99)
[2020-04-18] MEDS: INSULIN ASPART (NovoLOG) 100 UNIT/ML VIAL SQ SCH ×4 (07:24→21:28)
[2020-04-18] MEDS: IPRATROPIUM-ALBUTEROL 3 ML NEB INHALATION SCH ×4 (08:12→20:38)
[2020-04-18] MEDS: ASPIRIN 81 MG PO SCH (08:59)
[2020-04-18] MEDS: NICOTINE 14MG/24HR PATCH TRANSDERM SCH (08:59)
[2020-04-18] MEDS: metFORMIN 500 MG TAB PO SCH ×2 (09:00→17:36)
[2020-04-18] MEDS: MONTELUKAST 10 MG TAB PO SCH (09:00)
[2020-04-18] MEDS: PANTOPRAZOLE 40 MG TABLET PO SCH (09:00)
[2020-04-18] MEDS: TAMSULOSIN 0.4 MG CAP.ER.24H PO SCH ×2 (09:00→21:27)
[2020-04-18 09:31] LABS: African American GFR (CKD) 66.7 (60.0-200.0); Anion Gap 10.5 mmol/L (4.00-12.00); BUN/Creat Ratio 24.17 Ratio (12.00-20.00); Calcium 9.6 mg/dL (8.7-10.3); Carbon Dioxide 24.5 mmol/L (21.6-31.8); Non-African American GFR(CKD) 57.6 (60.0-200.0); Potassium 4.6 mmol/L (3.5-5.5)
[2020-04-18 12:19] LABS: Glucose,Whole Blood 114 mg/dL (75-99)
--- NOTE | 2020-04-18 16:34 | PN ---
PROGRESS NOTE DATE OF SERVICE: 04/18/2020 This is a 80-year-old gentleman who was admitted with multiple metastatic lesions in the brain is being closely monitored. Biopsy is pending at this time. No chest pain. No palpitations. No fever. PHYSICAL EXAMINATION: Alert and oriented x3. Pulse 67, blood pressure 140/60, respirations 16, temperature 98 degrees, pulse ox 98% on room air. HEENT: Conjunctivae normal. NECK: No jugular venous distension. CARDIAC: S1, S2, muffled. RESPIRATION: Breath sound diminished at the bases, a few scattered rhonchi, no crackles. ABDOMEN: Soft, nontender. LEGS: No edema. No swelling. NERVOUS SYSTEM: No focal deficits. LABS: WBC 11.8, hemoglobin 14.2, sodium 135, potassium 4.6. ASSESSMENT: 1. Multiple metastatic brain lesions with possible metastatic malignancy. 2. Status post anterior mediastinal lymph node biopsy. 3. Change in mental status acute toxic encephalopathy. 4. Gait dysfunction. 5. History of bilateral adrenal nodules. 6. Chronic obstructive pulmonary disease. 7. Diabetes mellitus type 2. 8. Gastroesophageal reflux disease. 9. Gait dysfunction. 10.Hyperlipidemia. 11.DJD. 12.Hypomagnesemia. 13.History of prostate cancer. 14.History of protein calorie malnutrition, mild. 15.FULL CODE. RECOMMENDATION: Recommend to continue current medications, symptomatic treatment. Otherwise, final biopsy is still pending at this time. Continue to monitor closely, follow with Hematology/Oncology and assess Oncology. Guarded prognosis. Further recommendations to follow. MMODL / IJN: [id number] / MTDD
[2020-04-18 16:47] LABS: Glucose,Whole Blood 128 mg/dL (75-99)
[2020-04-18 20:48] LABS: Glucose,Whole Blood 183 mg/dL (75-99)
--- NOTE | 2020-04-18 20:55 | PN ---
PROGRESS NOTE This is a 80-year-old gentleman who was admitted back on April 12. The patient was admitted with a diagnosis of generalized weakness and frequent falls secondary to metastatic disease. CT scan of the brain revealed numerous intra-axial lesions consistent with metastatic disease. The patient also has a history of enlarging anterior mediastinal lymph node and is status post fine-needle aspiration of the mediastinal lymph node by Interventional Radiology. Pathology is still pending. In addition, the patient has new bilateral adrenal nodules, chronic and ongoing tobacco dependence, COPD, diabetes, GERD, hyperlipidemia, osteoarthritis, prostate cancer and general medical debility. Currently the patient has no particular complaints today. PHYSICAL EXAMINATION: VITAL SIGNS: Current vital signs are reviewed. Temperature is 98, heart rate 79, respiratory rate 16, blood pressure 114/68, mean 83, and room-air saturation 96%. GENERAL APPEARANCE: He appears in no acute distress. HEENT EXAMINATION: Grossly unremarkable. No supplemental oxygen. NECK: Supple. Full range of motion. No adenopathy or thyromegaly. CARDIOVASCULAR EXAMINATION: Regular rhythm and rate. S1, S2 normal. Heart rate in the mid 80s. LUNGS: Lungs reveal a few scattered rhonchi. No wheezes or crackles. ABDOMEN: Soft. EXTREMITIES: Intact. No cyanosis, clubbing or edema. SKIN: Without rash. NEUROLOGIC: Neurologic examination is unremarkable. The patient is a bit of a poor historian but does move all 4 extremities. LABS: Labs are reviewed. White count 11.8, hemoglobin 14.8, hematocrit 45.4, platelet count 207,000. Sodium 135, potassium 4.6, chloride 100, CO2 24.5. Anion gap is 10.5. BUN and creatinine were 29 and 1.2. The rest of the labs look okay. Microbiology is negative. Pathology is pending April 14. Medications are reviewed. ASSESSMENT: 1. Generalized residual weakness and frequent falls secondary to metastatic disease. CT scan of the brain reveals numerous intra-axial lesions consistent with metastatic disease. Bone scan shows abnormalities in the area of the right shoulder. 2. Status post fine-needle aspiration of a mediastinal lymph node on April 14. Pathology is currently pending. 3. New bilateral adrenal nodules measuring up to 1.8 cm; could be consistent with metastasis. 4. Chronic and ongoing tobacco dependence. 5. Chronic obstructive pulmonary disease. 6. Diabetes mellitus. 7. Gastroesophageal reflux disease. 8. Hyperlipidemia. 9. Degenerative joint disease. 10.Prostate cancer. 11.General medical debility. PLAN: The patient is relatively stable at this time. We are awaiting the final biopsy. The patient's respiratory status is stable. We will continue to follow. Prognosis is very poor. Additional recommendations and suggestions are forthcoming. CRISTAL / NICOLN: [id number] /
[2020-04-18] MEDS: PRAVASTATIN SODIUM 40 MG TAB PO SCH (21:27)
[2020-04-18] MEDS: MELATONIN 3 MG TABLET PO SCH (21:28)
[2020-04-19] MEDS: ALPRAZolam 0.25 MG TAB PO PRN ×3 (00:26→17:56)
[2020-04-19] MEDS: HYDROcodone/APAP 10-325MG 1 EACH TAB PO PRN ×3 (00:27→17:56)
[2020-04-19] MEDS: DEXAMETHASONE SOD PHOSPHATE 4 MG/ML 1 ML VIAL IV SCH ×3 (06:15→22:04)
[2020-04-19 06:56] LABS: Glucose,Whole Blood 132 mg/dL (75-99)
[2020-04-19] MEDS: INSULIN ASPART (NovoLOG) 100 UNIT/ML VIAL SQ SCH ×4 (07:27→22:04)
[2020-04-19] MEDS: MONTELUKAST 10 MG TAB PO SCH (08:23)
[2020-04-19] MEDS: NICOTINE 14MG/24HR PATCH TRANSDERM SCH (08:23)
[2020-04-19] MEDS: PANTOPRAZOLE 40 MG TABLET PO SCH (08:23)
[2020-04-19] MEDS: metFORMIN 500 MG TAB PO SCH ×2 (08:23→17:17)
[2020-04-19] MEDS: ASPIRIN 81 MG PO SCH (08:23)
[2020-04-19] MEDS: TAMSULOSIN 0.4 MG CAP.ER.24H PO SCH ×2 (08:23→22:05)
[2020-04-19] MEDS: IPRATROPIUM-ALBUTEROL 3 ML NEB INHALATION SCH ×4 (09:41→20:38)
[2020-04-19 11:20] LABS: Glucose,Whole Blood 130 mg/dL (75-99)
[2020-04-19 13:46] VITALS: BMI 23.3
--- NOTE | 2020-04-19 14:02 | P.PN ---
Subjective Progress Note Date: 04/19/20 Principal diagnosis: Frequent falls, metastatic brain disease, mediastinal adenopathy, rule out metastatic brain cancer This is a pleasant 80-year-old gentleman who follows Dr. Pastrana as his primary care provider. He has a history of diabetes mellitus, type II, gastric ulcers, hyperlipidemia, gastric esophageal reflux disease, prostate cancer. He has has a history of chronic obstructive pulmonary disease and chronic and ongoing tobacco dependence. He follows with Dr. Rajput in our office. He was last seen in April 2019. At that time he was noted to have a left lower lobe nodule with slight uptake in the nodule in the left infrahilar lymph node not significantly positive for malignancy but suspicious. The patient was deemed a poor candidate for any surgical intervention at that time and the node was too small to biopsy. He presented to the emergency room yesterday with increasing weakness and frequent falls. CAT scan of the chest abdomen and pelvis revealed a enlarging anterior mediastinal lymph node at 2.5 cm versus 6 mm previously. There is a 1.0 cm subcarinal lymph node. New bilateral adrenal nodules measuring up to 1.8 cm. These are new as well. There is a left basilar pulmonary nodule remains stable from January 2019 at 1.1 cm. Computed tomography scan of the brain revealed numerous intra-axial lesions consistent with metastatic prostatic disease. The patient was seen today in consultation. He is currently sitting up in a chair at the bedside. Awake and alert in no acute distress. He is quite disheveled and weak. He is maintaining O2 saturations in the mid 90s on room air. He is afebrile. Hemodynamically stable. He currently denies any worsening shortness of breath, cough or congestion. He denies hemoptysis. He has been losing weight. He has been initiated on Decadron. Bone scan is pending. The patient is seen today 04/15/2020 in follow-up on the oncology unit. He is currently sitting up at the bedside. Awake and alert in no acute distress. Currently maintaining good O2 saturations in the upper 90s on room air. He's afebrile. Hemodynamically stable. Blood glucose 117. He did undergo mediastinal lymph node biopsy yesterday. Pathology pending. Follow-up chest x- ray reveals no evidence of pneumothorax. No acute pulmonary process. Bone scan revealed large radiotracer accumulation of the right shoulder suspect metastasis. Radiation oncology and medical oncology are on the case. Patient is seen today 04/16/2020 in follow-up on the oncology unit. He is sitting in bed. Awake and alert in no acute distress. He denies any worsening shortness of breath, cough or congestion. He is maintaining good O2 saturations in the mid 90s on room air. He's been afebrile. Hemodynamically stable. White count 10.5. Hemoglobin 14.2. Sodium 138. Potassium 4.6. Creatinine 0.9. Remains on IV Decadron. Continued on bronchodilators. Pathology report still pending. On 04/17/2020 patient seen in follow-up on general medical oncology floor he is awake and alert, sitting up in the recliner, appears to be in no acute distress, he states his gait is a little bit steadier today, he is awake and and oriented 3, no altered mentation, he is on room air, his breathing comfortably. Lung sounds are clear, no rhonchi or wheezing, no complaints of hemoptysis or chest pain. His pathology report is still not back. His vital signs have been stable, he remains on IV Decadron, bronchodilators, his had no fever or chills, he was seen in consultation by radiation oncology and they're also awaiting final biopsy results. On 04/19/2020 patient seen in follow-up on general medical oncology floor, she is awake and alert, oriented 3, sitting up in the chair, his had no recurrent gait instability, no complaints of headaches, no seizures, is answering questions appropriate, denies any acute shortness of breath, seems comfortable with his breathing, no cough, no hemoptysis, remains on room air with a pulse ox of 97%, no fever or chills, hemodynamically patient is stable. 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 Final report is pending at this time. Patient reports no nausea or vomiting. Objective - Vital Signs Vital signs: Vital Signs Temp 97.7 F 04/19/20 12:06 Pulse 59 L 04/19/20 12:46 Resp 17 04/19/20 12:06 BP 125/59 04/19/20 12:06 Pulse Ox 97 04/19/20 12:06 Intake & Output 04/18/20 04/19/20 04/19/20 18:59 06:59 18:59 Intake Total 120 Output Total 300 400 Balance -180 -400 Weight 71.668 kg Intake: Oral 120 Output: Urine 300 400 Other: Voiding Method Toilet Toilet Urinal Urinal # Voids 1 - Exam GENERAL EXAM: Alert, very pleasant, 80-year-old white male, on room air, with a pulse ox 97% comfortable in no apparent distress. HEAD: Normocephalic/atraumatic. EYES: Normal reaction of pupils, equal size. Conjunctiva pink, sclera white. NOSE: Clear with pink turbinates. THROAT: No erythema or exudates. NECK: No masses, no JVD, no thyroid enlargement, no adenopathy. CHEST: No chest wall deformity. Symmetrical expansion. LUNGS: Equal air entry with no crackles, wheeze, rhonchi or dullness. CVS: Regular rate and rhythm, normal S1 and S2, no gallops, no murmurs, no rubs ABDOMEN: Soft, nontender. No hepatosplenomegaly, normal bowel sounds, no guarding or rigidity. EXTREMITIES: No clubbing, no edema, no cyanosis, 2+ pulses and upper and lower extremities. MUSCULOSKELETAL: Muscle strength and tone normal. SPINE: No scoliosis or deformity SKIN: No rashes CENTRAL NERVOUS SYSTEM: Alert and oriented -3. No focal deficits, tone is normal in all 4 extremities. PSYCHIATRIC: Alert and oriented -3. Appropriate affect. Intact judgment and insight. - Labs CBC & Chem 7: 04/18/20 05:38 04/18/20 05:38 Labs: Abnormal Lab Results - Last 24 Hours (Table) 04/18/20 04/18/20 04/19/20 Range/Units 16:45 20:47 06:55 POC Glucose (mg/dL) 128 H 183 H 132 H (75-99) mg/dL 04/19/20 Range/Units 11:18 POC Glucose (mg/dL) 130 H (75-99) mg/dL Assessment and Plan Plan: Assessment: 1 Generalized weakness and frequent falls secondary to metastatic disease. CAT scan of the brain does reveal numerous intra-axial lesions consistent with metastatic disease. Bone scan reveals radiotracer uptake in the right shoulder suspicious for metastases. 2 Enlarging anterior mediastinal lymph node now measuring 2.5 cm versus 6 mm in January 2019. Suggestive of metastatic disease. Stable irregular 1.1 cm left basilar pulmonary nodule. Stable 1.6 cm left infrahilar soft tissue n odule/lymph node along the esophagus. Status post FNA of the mediastinal lymph node on 04/14/2020 by IR. Pathology pending. 3 New bilateral adrenal nodules measuring up to 1.8 cm. 4 Chronic and ongoing tobacco dependence 5 Chronic obstructive pulmonary disease 6 Diabetes mellitus, type II 7 GERD 8 Hyperlipidemia 9 Primary osteoarthritis 10 History of prostate cancer 11 Poor overall functional performance based on the above-mentioned multiple comorbidities Plan: Continue current medical treatment, continue nebulized bronchodilators, patient is on steroids for brain metastasis, he was offered radiation treatment for his brain metastasis today. Denies any worsening shortness of breath, she is on room air, still awaiting final pathology report of the preliminary report is likely going to be positive for adenocarcinoma of the lung. I performed a history & physical examination of the patient and discussed their management with my nurse practitioner, Violetta Anne. I reviewed the nurse practitioner's note and agree with the documented findings and plan of care. Lung sounds are positive for diminished breath sounds at the bases. The findings and the impression was discussed with the patient. I attest to the documentation by the nurse practitioner. Time with Patient: Less than 30
--- NOTE | 2020-04-19 16:18 | P.PN ---
Subjective Progress Note Date: 04/19/20 Principal diagnosis: lung cancer - brain mets Patient feeling OK today - no significant headache or nausea. He states he worked with PT today and did not have much trouble with balance. He feels he is safe to go home - patient's daughter is more concerned that he will not manage well at home. Pathology + for adenocarcinoma consistent with lung primary. Objective - Vital Signs Vital signs: Vital Signs Temp 97.7 F 04/19/20 12:06 Pulse 59 L 04/19/20 12:46 Resp 17 04/19/20 12:06 BP 125/59 04/19/20 12:06 Pulse Ox 97 04/19/20 12:06 Intake & Output 04/18/20 04/19/20 04/19/20 18:59 06:59 18:59 Intake Total 120 Output Total 300 400 Balance -180 -400 Weight 71.668 kg Intake: Oral 120 Output: Urine 300 400 Other: Voiding Method Toilet Toilet Urinal Urinal # Voids 1 - Constitutional General appearance: Present: no acute distress - EENT Eyes: Present: EOMI, PERRLA ENT: Present: hearing grossly normal - Respiratory Respiratory: bilateral: CTA - Cardiovascular Rhythm: regular - Integumentary Integumentary: Absent: calor, cellulitis - Neurologic Neurologic: Present: CNII-XII intact - Musculoskeletal Musculoskeletal: Present: strength equal bilaterally - Psychiatric Psychiatric: Present: A&O x's 3, appropriate affect - Labs CBC & Chem 7: 04/18/20 05:38 04/18/20 05:38 Labs: Abnormal Lab Results - Last 24 Hours (Table) 04/18/20 04/18/20 04/19/20 Range/Units 16:45 20:47 06:55 POC Glucose (mg/dL) 128 H 183 H 132 H (75-99) mg/dL 04/19/20 Range/Units 11:18 POC Glucose (mg/dL) 130 H (75-99) mg/dL Assessment and Plan Assessment: The patient is a 80 year old male with a previous history of prostate cancer status-post ADT + RT. 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 1. Brain mets: Discussed that this would require WBRT if the patient elected to undergo therapy. I explained this could be done outpatient and discussed possible related toxicity. Patient is undecided if he would like to pursue therapy or not. 2. Adenocarcinoma of lung: Not a large burden of systemic disease: adrenal nodules, 2 cm mediastinal adenopathy, I do believe the shoulder is chronic arthritic changes (was present on prior bone-scan). Patient has expressed he may be interested in no therapy at all. I would recommend hospice evaluate the patient and discuss their impression with Susi (daughter and primary caregiver). Susi is concerned that the patient will have trouble staying at home. Prior to this past month he was ambulating without assistance and doing personal grooming/care for home. Would appreciate input from PT for possible dispo. We could arrange outpatient follow-up if the patient ultimately elects to undergo treatment. Time with Patient: Less than 30
[2020-04-19 17:09] LABS: Glucose,Whole Blood 122 mg/dL (75-99)
--- NOTE | 2020-04-19 17:26 | PN ---
PROGRESS NOTE DATE OF SERVICE: 04/19/2020 This 80-year-old gentleman who was admitted with multiple metastatic lesions in the brain is being closely monitored. The final biopsy report of the anterior mediastinal mass showed poorly differentiated carcinoma consistent with primary pulmonary origin. The patient is being closely monitored. No chest pain. No palpitations. No fever. Dr. Parker recommended outpatient radiation therapy. PHYSICAL EXAMINATION: The patient is conscious, confused. Pulse 91, blood pressure 120/59, respirations 17, temperature 97.7, pulse ox 97% on room air. HEENT: Conjunctivae normal. NECK: No jugular venous distention. CARDIOVASCULAR SYSTEM: S1, S2 muffled. RESPIRATORY SYSTEM: Breath sounds diminished at the bases. No rhonchi. No crackles. ABDOMEN: Soft, non-tender. LEGS: No edema. No swelling. NERVOUS SYSTEM: No focal deficit. LABS: Glucose 132. WBC 11.8, hemoglobin 14.8, sodium is 135. ASSESSMENT: 1. Multiple metastatic brain lesions with possibly poorly differentiated adenocarcinoma consistent with primary pulmonary origin. 2. Status post anterior mediastinal lymph node biopsy. 3. Change in mental status and acute toxic encephalopathy. 4. Gait dysfunction. 5. History of bilateral adrenal nodules. 6. Chronic obstructive pulmonary disease. 7. Diabetes mellitus, type 2. 8. Gastroesophageal reflux disease. 9. Gait dysfunction. 10.Hyperlipidemia. 11.History of degenerative joint disease. 12.History of hypomagnesemia. 13.History of prostate cancer. 14.History of protein-calorie malnutrition, mild. 15.FULL CODE. RECOMMENDATIONS AND DISCUSSION: I recommend to continue current medications, continue with the monitoring, symptomatic treatment. Otherwise at this time closely follow with Radiation Therapy and possible PT/OT evaluation, possible ECF rehab. Guarded prognosis because of multiple complex medical issues. Further recommendations to follow. MMODL / IJN: [id number] /
[2020-04-19 20:33] LABS: Glucose,Whole Blood 153 mg/dL (75-99)
--- NOTE | 2020-04-19 21:56 | P.PN ---
Subjective Progress Note Date: 04/19/20 Principal diagnosis: New Metastatic Lung Cancer Pathology confirmed adenocarcinoma most consistent with pulmonary origin, discussion with patient and radiation onc. Plan Whole Brain Radiation if patient wants to continue with plan for treatment, he is still rather reluctant, carlos morrison has not made definitive decision. Pain in right shoulder could have benefit of palliative radiation Objective - Vital Signs Vital signs: Vital Signs Temp 98.2 F 04/19/20 21:00 Pulse 74 04/19/20 21:00 Resp 18 04/19/20 21:00 BP 125/75 04/19/20 21:00 Pulse Ox 95 04/19/20 21:00 Intake & Output 04/19/20 04/19/20 04/20/20 06:59 18:59 06:59 Output Total 400 Balance -400 Weight 71.668 kg Output: Urine 400 Other: Voiding Method Toilet Urinal # Voids 1 - Exam - Constitutional General appearance: no acute distress - EENT Eyes: EOMI, PERRLA ENT: hearing grossly normal, normal oropharynx - Neck Neck: no lymphadenopathy Thyroid: bilateral: normal size - Respiratory Respiratory: bilateral: CTA - Cardiovascular Rhythm: regular Heart sounds: normal: S1, S2 - Gastrointestinal General gastrointestinal: normal bowel sounds, soft - Integumentary Integumentary: normal - Neurologic Neurologic: CNII-XII intact - Musculoskeletal Musculoskeletal: generalized weakness, strength equal bilaterally - Psychiatric Psychiatric: A&O x's 3, appropriate affect - Labs CBC & Chem 7: 04/18/20 05:38 04/18/20 05:38 Labs: Abnormal Lab Results - Last 24 Hours (Table) 04/19/20 04/19/20 04/19/20 Range/Units 06:55 11:18 17:07 POC Glucose (mg/dL) 132 H 130 H 122 H (75-99) mg/dL 04/19/20 Range/Units 20:31 POC Glucose (mg/dL) 153 H (75-99) mg/dL Assessment and Plan Plan: Brain lesion Narrative/Plan: The patient is being seen because of diagnosis of multiple brain lesions highly suggestive of metastasis. - Focal weakness minimal - CT of the chest abdomen and pelvis ordered and results reviewed with patient . - IV steroids to reduce vasogenic edema in the brain Reviewed brain MRI - Reviewed with radiation oncology Ataxia Narrative/Plan: - Presumed to be due to brain metastasis. Confirmed MRI - The patient does not have other focal deficits. - Monitor on IV steroids. Continue PPI New Diagnosis of metastatic adenocarcinoma of the lung: - Await patients final decision of treatment goals - Still reluctant to move forward with discussion of whole brain radiation and/or systemic chemotherapy, comfort care is of reasonable decision. - Potential relief with palliative radiation option to right shoulder as well, discuss with Dr. Parker defer to the admitting service nd other consultants for management of his other medical problems Physician Attest: I have completed the full history and impression and plan, agree with above dictated as a scribe.
[2020-04-19] MEDS: PRAVASTATIN SODIUM 40 MG TAB PO SCH (22:05)
[2020-04-19] MEDS: MELATONIN 3 MG TABLET PO SCH (22:05)
[2020-04-20] MEDS: HYDROcodone/APAP 10-325MG 1 EACH TAB PO PRN (00:07)
[2020-04-20] MEDS: ALPRAZolam 0.25 MG TAB PO PRN (00:07)
[2020-04-20] MEDS: DEXAMETHASONE SOD PHOSPHATE 4 MG/ML 1 ML VIAL IV SCH ×2 (05:59→13:04)
[2020-04-20 07:19] LABS: Glucose,Whole Blood 122 mg/dL (75-99)
[2020-04-20] MEDS: SODIUM CHLORIDE 0.9% 1,000 ML IV SCH (07:37)
[2020-04-20] MEDS: INSULIN ASPART (NovoLOG) 100 UNIT/ML VIAL SQ SCH ×2 (07:37→12:54)
[2020-04-20] MEDS: metFORMIN 500 MG TAB PO SCH (08:10)
[2020-04-20] MEDS: NICOTINE 14MG/24HR PATCH TRANSDERM SCH (08:10)
[2020-04-20] MEDS: MONTELUKAST 10 MG TAB PO SCH (08:11)
[2020-04-20] MEDS: TAMSULOSIN 0.4 MG CAP.ER.24H PO SCH (08:11)
[2020-04-20] MEDS: ASPIRIN 81 MG PO SCH (08:11)
[2020-04-20] MEDS: PANTOPRAZOLE 40 MG TABLET PO SCH (08:11)
[2020-04-20] MEDS: IPRATROPIUM-ALBUTEROL 3 ML NEB INHALATION SCH ×2 (08:48→12:16)
[2020-04-20 11:35] LABS: Glucose,Whole Blood 118 mg/dL (75-99)
[2020-04-20 11:46] VITALS: BP 128/74; TEMP 97.9
[2020-04-20 12:18] VITALS: RESP 18
[2020-04-20 12:29] VITALS: PULSE 78
--- NOTE | 2020-04-20 13:31 | P.PN ---
Subjective Progress Note Date: 04/20/20 Principal diagnosis: Frequent falls, metastatic brain disease, mediastinal adenopathy, rule out metastatic brain cancer This is a pleasant 80-year-old gentleman who follows Dr. Pastrana as his primary care provider. He has a history of diabetes mellitus, type II, gastric ulcers, hyperlipidemia, gastric esophageal reflux disease, prostate cancer. He has has a history of chronic obstructive pulmonary disease and chronic and ongoing tobacco dependence. He follows with Dr. Rajput in our office. He was last seen in April 2019. At that time he was noted to have a left lower lobe nodule with slight uptake in the nodule in the left infrahilar lymph node not significantly positive for malignancy but suspicious. The patient was deemed a poor candidate for any surgical intervention at that time and the node was too small to biopsy. He presented to the emergency room yesterday with increasing weakness and frequent falls. CAT scan of the chest abdomen and pelvis revealed a enlarging anterior mediastinal lymph node at 2.5 cm versus 6 mm previously. There is a 1.0 cm subcarinal lymph node. New bilateral adrenal nodules measuring up to 1.8 cm. These are new as well. There is a left basilar pulmonary nodule remains stable from January 2019 at 1.1 cm. Computed tomography scan of the brain revealed numerous intra-axial lesions consistent with metastatic prostatic disease. The patient was seen today in consultation. He is currently sitting up in a chair at the bedside. Awake and alert in no acute distress. He is quite disheveled and weak. He is maintaining O2 saturations in the mid 90s on room air. He is afebrile. Hemodynamically stable. He currently denies any worsening shortness of breath, cough or congestion. He denies hemoptysis. He has been losing weight. He has been initiated on Decadron. Bone scan is pending. The patient is seen today 04/15/2020 in follow-up on the oncology unit. He is currently sitting up at the bedside. Awake and alert in no acute distress. Currently maintaining good O2 saturations in the upper 90s on room air. He's afebrile. Hemodynamically stable. Blood glucose 117. He did undergo mediastinal lymph node biopsy yesterday. Pathology pending. Follow-up chest x- ray reveals no evidence of pneumothorax. No acute pulmonary process. Bone scan revealed large radiotracer accumulation of the right shoulder suspect metastasis. Radiation oncology and medical oncology are on the case. Patient is seen today 04/16/2020 in follow-up on the oncology unit. He is sitting in bed. Awake and alert in no acute distress. He denies any worsening shortness of breath, cough or congestion. He is maintaining good O2 saturations in the mid 90s on room air. He's been afebrile. Hemodynamically stable. White count 10.5. Hemoglobin 14.2. Sodium 138. Potassium 4.6. Creatinine 0.9. Remains on IV Decadron. Continued on bronchodilators. Pathology report still pending. On 04/17/2020 patient seen in follow-up on general medical oncology floor he is awake and alert, sitting up in the recliner, appears to be in no acute distress, he states his gait is a little bit steadier today, he is awake and and oriented 3, no altered mentation, he is on room air, his breathing comfortably. Lung sounds are clear, no rhonchi or wheezing, no complaints of hemoptysis or chest pain. His pathology report is still not back. His vital signs have been stable, he remains on IV Decadron, bronchodilators, his had no fever or chills, he was seen in consultation by radiation oncology and they're also awaiting final biopsy results. On 04/19/2020 patient seen in follow-up on general medical oncology floor, she is awake and alert, oriented 3, sitting up in the chair, his had no recurrent gait instability, no complaints of headaches, no seizures, is answering questions appropriate, denies any acute shortness of breath, seems comfortable with his breathing, no cough, no hemoptysis, remains on room air with a pulse ox of 97%, no fever or chills, hemodynamically patient is stable. 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 Final report is pending at this time. Patient reports no nausea or vomiting. 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 He discussed care with the radiation oncology who offered the radiation treatments for his brain metastasis. He is seriously considering hospice at this time, but he does want to go home. Otherwise has had no acute events overnight, vitals have been stable, no new labs a chest x-rays, no specific complaints. Objective - Vital Signs Vital signs: Vital Signs Temp 97.9 F 04/20/20 11:46 Pulse 78 04/20/20 12:28 Resp 18 04/20/20 12:28 BP 128/74 04/20/20 11:46 Pulse Ox 93 L 04/20/20 11:46 Intake & Output 04/19/20 04/20/20 04/20/20 18:59 06:59 18:59 Intake Total 500 480 Output Total 350 Balance 500 130 Weight 71.668 kg Intake: Oral 500 480 Output: Urine 350 Other: Voiding Method Toilet Urinal # Voids 2 - Exam GENERAL EXAM: Alert, very pleasant, 80-year-old white male, on room air, with a pulse ox 97% comfortable in no apparent distress. HEAD: Normocephalic/atraumatic. EYES: Normal reaction of pupils, equal size. Conjunctiva pink, sclera white. NOSE: Clear with pink turbinates. THROAT: No erythema or exudates. NECK: No masses, no JVD, no thyroid enlargement, no adenopathy. CHEST: No chest wall deformity. Symmetrical expansion. LUNGS: Equal air entry with no crackles, wheeze, rhonchi or dullness. CVS: Regular rate and rhythm, normal S1 and S2, no gallops, no murmurs, no rubs ABDOMEN: Soft, nontender. No hepatosplenomegaly, normal bowel sounds, no guarding or rigidity. EXTREMITIES: No clubbing, no edema, no cyanosis, 2+ pulses and upper and lower extremities. MUSCULOSKELETAL: Muscle strength and tone normal. SPINE: No scoliosis or deformity SKIN: No rashes CENTRAL NERVOUS SYSTEM: Alert and oriented -3. No focal deficits, tone is normal in all 4 extremities. PSYCHIATRIC: Alert and oriented -3. Appropriate affect. Intact judgment and insight. - Labs CBC & Chem 7: 04/18/20 05:38 04/18/20 05:38 Labs: Abnormal Lab Results - Last 24 Hours (Table) 1104/19/20 04/20/20 Range/Units 17:07 20:31 07:17 POC Glucose (mg/dL) 122 H 153 H 122 H (75-99) mg/dL 04/20/20 Range/Units 11:32 POC Glucose (mg/dL) 118 H (75-99) mg/dL Assessment and Plan Plan: Assessment: 1 Generalized weakness and frequent falls secondary to metastatic disease. CAT scan of the brain does reveal numerous intra-axial lesions consistent with metastatic disease. Bone scan reveals radiotracer uptake in the right shoulder suspicious for metastases. 2 Enlarging anterior mediastinal lymph node now measuring 2.5 cm versus 6 mm in January 2019. Suggestive of metastatic disease. Stable irregular 1.1 cm left basilar pulmonary nodule. Stable 1.6 cm left infrahilar soft tissue nodule/lymph node along the esophagus. Status post FNA of the mediastinal lymph node on 04/14/2020 by IR. 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 4 Chronic and ongoing tobacco dependence 5 Chronic obstructive pulmonary disease 6 Diabetes mellitus, type II 7 GERD 8 Hyperlipidemia 9 Primary osteoarthritis 10 History of prostate cancer 11 Poor overall functional performance based on the above-mentioned multiple comorbidities Plan: Patient is seriously considering hospice enrollment, he wants to go home, follow reported as mentioned above came back positive for poorly differentiated adenocarcinoma with primary lung origin. No worsening dyspnea, he feels steady on his feet, no nausea vomiting, less lightheadedness stable, hospice consultation is pending at this time, the patient is to discuss this with the hospice and the rest of his family. I performed a history & physical examination of the patient and discussed their management with my nurse practitioner, Violetta Anne. I reviewed the nurse practitioner's note and agree with the documented findings and plan of care. Lung sounds are positive for diminished breath sounds at the bases. The findings and the impression was discussed with the patient. I attest to the documentation by the nurse practitioner. Time with Patient: Less than 30
--- NOTE | 2020-04-21 21:06 | P.DS ---
Providers Date of admission: 04/12/20 21:39 Expected date of discharge: 04/20/20 Attending physician: Jose Augustine Consults: 04/12/20 21:39 Consult Physician Urgent Consulting Provider: Sebastián Lucio Consult Reason/Comments: Brain lesion and ataxia Do you want consulting provider notified?: Yes 04/13/20 14:32 Consult Physician Routine Consulting Provider: Liyah Melvin Consult Reason/Comments: Possible Bronch and tissue biopsy Do you want consulting provider notified?: Yes 04/13/20 18:18 Consult Physician Routine Consulting Provider: Jordan Parker Consult Reason/Comments: brain mets Do you want consulting provider notified?: Yes Primary care physician: [facility] Course: Chief Complaint: Falls History of presenting complaint: This is a 80-year-old patient was chronic stable medical conditions include hyperlipidemia, GERD, hypertension, osteoarthritis, peptic ulcer disease and underlying COPD. Patient's had progressively poor balance. In the last 4 weeks has fallen down 3-4 times. Decreased appetite and weight loss. No palpitation or chest pain. No fever no chills. No change in bowel or urine patent. Co mputed tomography scan of the ER showed multiple ring-enhancing lesions. Patient is put on IV Decadron. Oncology was consulted. Baseline shortness of breath and wheezing. Admitted with multiple brain enhancing lesions. Primary unknown. On IV Decadron. Underwent biopsy by interventional radiology. Came back positive for adenocarcinoma. Patient was seen by Dr. Vaughn Parker from radiation oncology. Dr. Lucio from oncology. Patient is not sure if he really wanted treatment. Function status is not good. Today-sitting up in a chair. Tired. Spoke to Dr. Salmon team. Oral intake not good. Patient decided to proceed with home with hospice. Discussed with psychotherapist social worker. discharge planning more than 35 minutes Consultation: Dr. Pizarro and partners from pulmonary Dr. Vaughn Parker from radiation oncology Dr. Lucio from oncology Physical examination: VITAL SIGNS: 97.9, 77, 16, 128/34, 93% room air GENERAL: Sitting up in a chair, tired EYES: Pupils equal. Conjunctiva normal. NECK: JVD not raised; masses not palpable. HEART: First and second heart sounds are normal; no edema. LUNGS: Respiratory rate increased, poor air entry. ABDOMEN: Soft, nontender, liver spleen not palpable, no masses palpable. PSYCH: Alert and oriented x3; mood and affect anxious MUSCULAR skeletal: Evidence of OA, loss of subcutaneous fat and muscle mass. INVESTIGATIONS, reviewed in the clinical context: Bone scan-redo trace of the right shoulder, diminished lower lumbar spine uptake. White count 8.5 hemoglobin 13.8 platelets 186 potassium 4.5 creatinine 1.17 Troponin I less than 0.012, proBNP 323 UA negative EKG tracing personally reviewed by me-normal sinus rhythm poor LV progression Chest x-ray film personally reviewed by me-hyperinflation Computed tomography scan of the brain-numerous ringlike lesions throughout the brain Computed tomography scan chest abdomen pelvis with contrast-and large anterior mediastinal lymph node, unchanged lung nodules, DJD changes. Bilateral adrenal nodules 1.8 cm Assessment: -Multiple metastatic brain lesions ring-enhancing, metastatic from primary lung adenocarcinoma. -Bilateral adrenal nodules 1.8 cm-felt to be metastatic -COPD in a smoker -Diabetes mellitus type II -GERD -Hyperlipidemia -Primary osteoarthritis -History of prostate cancer -Mild protein calorie malnutrition -Diabetes mellitus type 2 on oral hypoglycemic -Medical debility Disposition: Home with hospice Advanced care planning: Had a lengthy talk with the patient. He is finally decided to proceed with home with hospice. Did talk about other aspects of the case. Spoke to the case management social worker. Patient is DO NOT RESUSCITATE. he'll be going home with hospice. Questions were answered. Time spent during this is about 20 minutes Patient Condition at Discharge: Poor Plan - Discharge Summary Discharge Rx Participant: No New Discharge Prescriptions: New Dexamethasone [Decadron] 4 mg PO TID #30 tablet Sodium Chloride 0.65% Nasal [Deep Sea (Saline)] 2 spray NASAL QID PRN spray PRN Reason: Dry Nasal Passages Nicotine 14Mg/24Hr Patch [Habitrol] 1 patch TRANSDERM DAILY #14 patch Continue Aspirin 81 mg PO DAILY Montelukast [Singulair] 10 mg PO DAILY HYDROcodone/APAP 10-325MG [[place] 10-325] 2 tab PO Q12H metFORMIN HCL 1,000 mg PO DAILY Omeprazole 40 mg PO DAILY Tamsulosin [Flomax] 0.4 mg PO BID Ipratropium-Albuterol Nebulize [Duoneb 0.5 mg-3 mg/3 ml Soln] 3 ml INHALATION RT-QID PRN PRN Reason: Shortness Of Breath Discontinued Pravastatin Sodium [Pravachol] 40 mg PO HS Discharge Medication List Aspirin 81 mg PO DAILY 08/24/15 [History] HYDROcodone/APAP 10-325MG [[place] 10-325] 2 tab PO Q12H 08/24/15 [History] Montelukast [Singulair] 10 mg PO DAILY 08/24/15 [History] Omeprazole 40 mg PO DAILY 08/24/15 [History] metFORMIN HCL 1,000 mg PO DAILY 08/24/15 [History] Tamsulosin [Flomax] 0.4 mg PO BID 05/05/18 [History] Ipratropium-Albuterol Nebulize [Duoneb 0.5 mg-3 mg/3 ml Soln] 3 ml INHALATION RT-QID PRN 04/12/20 [History] Dexamethasone [Decadron] 4 mg PO TID #30 tablet 04/20/20 [Rx] Nicotine 14Mg/24Hr Patch [Habitrol] 1 patch TRANSDERM DAILY #14 patch 04/20/20 [Rx] Sodium Chloride 0.65% Nasal [Deep Sea (Saline)] 2 spray NASAL QID PRN spray 04/20/20 [Rx] Follow up Appointment(s)/Referral(s): Abelardo Pastrana MD [Primary Care Provider] - 04/24/20 12:30 pm [facility] Visiting Nurse, [NON-STAFF] - 1 Week (Hospice) Patient Instructions/Handouts: Nicotine (Absorbed through the skin), Dexamethasone (By mouth), Hospice (DC), Fall Prevention for Older Adults (DC) Discharge Disposition: HOME WITH HOSPICE
== END 2020-04-20 16:12 | disposition hospice, home (50) | DRG 166 ==
LOC: EC 18:13 → 6NMEDSUR 21:39
PROVIDERS: ADMIT Hospitalist; ATTEND Hospitalist
PROC: 07B73ZX Excision of Thorax Lymphatic, Percutaneous Approach, Diagnostic (ICD-10-PCS; principal; 2020-04-14)
DX: C34.32 Malignant neoplasm of lower lobe, left bronchus or lung (principal); G92 Toxic encephalopathy; G93.6 Cerebral edema; C77.1 Secondary and unspecified malignant neoplasm of intrathoracic lymph nodes; C79.31 Secondary malignant neoplasm of brain; E44.1 Mild protein-calorie malnutrition; C79.89 Secondary malignant neoplasm of other specified sites; F17.210 Nicotine dependence, cigarettes, uncomplicated; Z85.46 Personal history of malignant neoplasm of prostate; Z92.3 Personal history of irradiation; E11.9 Type 2 diabetes mellitus without complications; E27.8 Other specified disorders of adrenal gland; Z68.23 Body mass index [BMI] 23.0-23.9, adult; E78.5 Hyperlipidemia, unspecified; E83.42 Hypomagnesemia; F32.9 Major depressive disorder, single episode, unspecified; I10 Essential (primary) hypertension; J44.9 Chronic obstructive pulmonary disease, unspecified; Z87.11 Personal history of peptic ulcer disease; Z86.010 Personal history of colon polyps; Z51.5 Encounter for palliative care; K21.9 Gastro-esophageal reflux disease without esophagitis; M19.91 Primary osteoarthritis, unspecified site; R29.6 Repeated falls; Z63.8 Other specified problems related to primary support group; Z79.82 Long term (current) use of aspirin; Z79.84 Long term (current) use of oral hypoglycemic drugs; Z79.899 Other long term (current) drug therapy; Z98.42 Cataract extraction status, left eye; Z98.41 Cataract extraction status, right eye; Z96.1 Presence of intraocular lens; M47.812 Spondylosis without myelopathy or radiculopathy, cervical region; Z79.891 Long term (current) use of opiate analgesic
CPT/HCPCS: 36415; 38505; 70450; 71045; 71046; 71260; 72125; 74177; 77012; 78306; 80048; 80053; 81003; 83036; 83605; 83735; 83880; 84153; 84484; 85025; 85610; 85730; 88305; 88341; 88342; 93005; 94640; 96360; 96361; 99285